=== PATIENT | female | born 1950 ===

== ENCOUNTER 2020-01-10 10:29 | Inpatient (IN) | payer MEDICARE, OTHER ==
[2020-01-10] MEDS ORDERED: cefTRIAXone(*) 1 GM in NS 0.9% 50 ML* 50 ML IVPB ONE (10:48)
[2020-01-10] MEDS ORDERED: Levofloxacin 750 MG IVPREMIX(* 750 MG/150 ML BAG IVPB ONE (10:48)
--- NOTE | 2020-01-10 10:54 | ED ---
Respiratory - HPI Summary HPI Summary: 70 year old F presenting to [facility] with a chief complaint of shortness of breath , coughing, and a subjective fever since 5 days ago. Patient reports one episode of vomiting this morning. She was seen at [facility] two hours ago and a chest x-ray showed pneumonia. When the patient arrived back home she had worsening shortness of breath and called EMS. Per EMS her oxygen saturation was 88% and she was tachycardic on their arrival. She improved with 3 L nasal cannula. Patient denies any sore throat, diarrhea, abdominal pain, travel outside of [place] in the last 2 months, or any known sick contacts. The patient has a history of breast cancer and is in remission. Medication list reviewed. Allergy list reviewed. Home Medications Medication Instructions Recorded Confirmed Type Bifidobacterium Infantis [Align] 4 mg PO DAILY 01/10/20 01/10/20 History Calcium Carbonate/Vitamin D3 1 each PO BID 01/10/20 01/10/20 History [Calcium 500-Vit D3 400 Chew Tb] Cholecalciferol TAB* [Vitamin D 1,000 unit PO DAILY 01/10/20 01/10/20 History TAB*] Dicyclomine CAP* [Bentyl CAP*] 20 mg PO BID 01/10/20 01/10/20 History Docusate CAP* [Colace Cap*] 100 mg PO DAILY 01/10/20 01/10/20 History Fluticasone NASAL SPRAY 50MCG* 2 spray BOTH NARES DAILY 01/10/20 01/10/20 History [Flonase NASAL SPRAY 50MCG*] Ibandronate TAB(NF) [Boniva(NF)] 150 mg PO QAM 01/10/20 01/10/20 History Multivitamins/Minerals TAB* 1 tab PO DAILY 01/10/20 01/10/20 History [Theragran/minerals TAB*] - History of Current Complaint Stated Complaint: SHORT OF BREATH Time Seen by Provider: 01/10/20 10:37 Hx Obtained From: Patient Onset/Duration: Lasting Days, Still Present Timing: Constant Associated Signs and Symptoms: Negative - Sore throat, diarrhea, abdominal pain , Fever - Allergy/Home Medications Allergies/Adverse Reactions: Allergies Allergy/AdvReac Type Severity Reaction Status Date / Time No Known Allergies Allergy Verified 01/10/20 11:20 Home Medications: Home Medications Bifidobacterium Infantis [Align] 4 mg PO DAILY 01/10/20 [History Confirmed 01/09] Calcium Carbonate/Vitamin D3 [Calcium 500-Vit D3 400 Chew Tb] 1 each PO BID [History Confirmed 01/10/20] Cholecalciferol TAB* [Vitamin D TAB*] 1,000 unit PO DAILY 01/10/20 [History Confirmed 01/10/20] Dicyclomine CAP* [Bentyl CAP*] 20 mg PO BID 01/10/20 [History Confirmed 01/10/20 ] Docusate CAP* [Colace Cap*] 100 mg PO DAILY 01/10/20 [History Confirmed 01/10/20 ] Fluticasone NASAL SPRAY 50MCG* [Flonase NASAL SPRAY 50MCG*] 2 spray BOTH NARES DAILY 01/10/20 [History Confirmed 01/10/20] Ibandronate TAB(NF) [Boniva(NF)] 150 mg PO QAM 01/10/20 [History Confirmed 01/09] Multivitamins/Minerals TAB* [Theragran/minerals TAB*] 1 tab PO DAILY 01/10/20 [ History Confirmed 01/10/20] PMH/Surg Hx/FS Hx/Imm Hx Endocrine/Hematology History: Denies: Hx Diabetes Cardiovascular History: Denies: Hx Hypertension - Cancer History Cancer Type, Location and Year: Breast cancer Hx Chemotherapy: No Hx Radiation Therapy: Yes - Surgical History Surgical History: Yes Surgery Procedure, Year, and Place: Lumpectomy - Family History Known Family History: Positive: Other - Cancer - Social History Alcohol Use: Daily Hx Substance Use: Yes Substance Use Type: Reports: Marijuana Hx Tobacco Use: No Smoking Status (MU): Never Smoked Tobacco Review of Systems Positive: Fever Negative: Sore Throat Positive: Shortness Of Breath, Cough Positive: Vomiting. Negative: Abdominal Pain, Diarrhea All Other Systems Reviewed And Are Negative: Yes Physical Exam - Summary Physical Exam Summary: Constitutional: Well-developed, Well-nourished, Alert. (-) Distressed Skin: Warm, Dry HENT: Normocephalic; Atraumatic Eyes: Conjunctiva normal Neck: Musculoskeletal ROM normal neck. (-) JVD, (-) Stridor, (-) Tracheal deviation Cardio: Rhythm regular, tachycardic in the 120s, Heart sounds normal; Intact distal pulses; Radial pulses are 2+ and symmetric. (-) Murmur Pulmonary/Chest wall: Slightly tachypneic, speaking in short sentences, no accessory muscles used, (-) Wheezes, (-) Rales, oxygen saturation is 88% on room air. Abd: Soft, (-) tenderness, (-) Distension, (-) Guarding, (-) Rebound Musculoskeletal: (-) Edema Lymph: (-) Cervical adenopathy Neuro: Alert, Oriented x3 Psych: Mood and affect Normal Triage Information Reviewed: Yes Vital Signs Reviewed: Yes Procedures - Sedation Patient Received Moderate/Deep Sedation with Procedure: No - Intubation Time of Intubation: 13:34 - Used a Glidoscope, sedated with Etomidate and Rocuronium. Patient desaturated to 77% during the procedure. Intubation Method: orotracheal Tube Size (cm): 7.5 - Glidoscope Breath Sounds after Intubation: equal Intubation Complications: O2 saturation decreased Post Intubation Xray: Yes Diagnostics - Laboratory Result Diagrams: 01/10/20 11:37 01/10/20 11:37 Lab Statement: Any lab studies that have been ordered have been reviewed, and results considered in the medical decision making process. - Radiology Chest x-ray Radiology Interpretation Completed By: Radiologist Summary of Radiographic Findings: CARDIOMEGALY WITH BIBASILAR INFILTRATES AND PATCHY INFILTRATES IN THE RIGHT UPPER LOBE WELL. ET TUBE AND NASOGASTRIC TUBE ARE IN PLACE. ED physician has reviewed this report. - EKG 11:12 Cardiac Rate: Other Rate - 129 BPM EKG Rhythm: Atrial Flutter Summary of EKG Findings: Left bundle branch block, no prior to compare to. ED physician has reviewed and interpreted this EKG. Re-Evaluation - Re-Evaluation First Eval Re-Evaluation Time: 11:59 Change: Worse Comment: Patient started to decompensate, she is very wheezy, using accessory muscles, speaking in one word sentences. Started a nebulizer treatment, she is feeling better but is still in respiratory distress. Second Eval Re-Evaluation Time: 13:14 Comment: The decision has been made to intubate the patient. Disposition - Course Course Of Treatment: Patient is here after being diagnosed with pneumonia this morning. Patient initially was only in mild distress. Shortly after arriving here, patient became markedly tachypneic and was wheezing. Patient was given a nebulizer treatment with mild improvement in her symptoms. Patient then continued to decline and eventually required 15 L of oxygen via an oxymask. Patient was intubated at that time. Patient's postintubation chest x-ray shows bilateral patchy infiltrates. Patient had cultures sent, Covid 19 swabs sent. Patient received Rocephin and levofloxacin after arriving in the emergency department when she was not in any respiratory distress. Patient received 2 L of IV fluids. Patient was found to be in atrial flutter as well and was started on amiodarone. Patient was admitted to the ICU - Diagnoses Provider Diagnoses: Respiratory failure, Atrial flutter, Pneumonia, Elevated troponin - Physician Notifications Discussed Care Of Patient With: Kevin Navas Time Discussed With Above Provider: 12:42 Instructed by Provider To: Other - Discussed with Dr. Navas who accepts the patient for admission. - Critical Care Time Critical Care Time: 75-104 min - 90 minutes Discharge ED - Sign-Out/Discharge Documenting (check all that apply): Patient Departure - Discharge Plan Condition: Stable Disposition: ADMITTED TO [facility] - Billing Disposition and Condition Condition: STABLE Disposition: Admitted to [facility] - Attestation Statements Document Initiated by Kentonibe: Yes Documenting Scribe: Ruth Starr Provider For Whom Kentonibe is Documenting (Include Credential): Abbe Aguillon MD Scribe Attestation: Ruth Jorgensen, scribed for Abbe Aguillon MD on 01/10/20 at 1557. Scribe Documentation Reviewed: Yes Provider Attestation: The documentation as recorded by the Ruth rodriguez accurately reflects the service I personally performed and the decisions made by , Abbe Aguillon MD Status of Scribe Document: Viewed
[2020-01-10] MEDS: NS 0.9% 1000 ML** 2,000 ML IV ONE ×2 (11:34→12:08)
[2020-01-10] MEDS ORDERED: Albuterol/Ipratropium NEB.SOL* Albuterol 2.5 MG/Ipratropium 0.5 MG 3 ML ONE (11:51)
[2020-01-10 12:01] LABS: ABS Lymphocytes 1.2 10^3/ul (1.0-4.8); ABS Monocytes 0.7 10^3/ul (0-0.8); ABS Neutrophils 9.2 10^3/ul (1.5-7.7); Hematocrit 47 % (35-47); Hemoglobin 15.8 g/dL (12.0-16.0); Mean Corpuscular HGB Conc 34 g/dL (31-36); Mean Corpuscular Hemoglobin 31 pg (27-31); Mean Corpuscular Volume 91 fL (80-97); Mean Platelet Volume 8.8 fL (7.4-10.4); Platelet Count 289 10^3/uL (150-450); Red Blood Count 5.09 10^6 /uL (3.70-4.87); Red Cell Distribution Width 14 % (10-15); White Blood Count 11.2 10^3/uL (3.5-10.8)
[2020-01-10 12:10] LABS: INR 1.24 (0.82-1.09)
[2020-01-10 12:19] LABS: ALT 131 U/L (7-52); AST 73 U/L (13-39); Albumin 4.3 g/dL (3.2-5.2); Albumin/Globulin Ratio 1.2 (1-3); Alkaline Phosphatase 140 U/L (34-104); Anion Gap 12 mmol/L (2-11); BUN/Creatinine Ratio 16.9 (8-20); Blood Urea Nitrogen 13 mg/dL (6-24); CO2 Carbon Dioxide 22 mmol/L (22-32); Calcium 9.7 mg/dL (8.6-10.3); Chloride 99 mmol/L (101-111); EGFR African American 89.4 (>60); EGFR Non-African American 73.9 (>60); Globulin 3.7 g/dL (2-4); Glucose 181 mg/dL (70-100); Potassium 4.6 mmol/L (3.5-5.0); Sodium 133 mmol/L (135-145)
[2020-01-10 12:22] LABS: Influenza A Molecular Negative (Negative); Influenza B Molecular Negative (Negative)
[2020-01-10 12:25] LABS: Troponin I 0.09 ng/mL (<0.03)
[2020-01-10] MEDS ORDERED: NS 0.9% 1000 ML** 1,000 ML IV ONE (12:35)
[2020-01-10] MEDS ORDERED: Amiodarone 360 MG IVPREMIX* 360 MG/200 ML BAG IV ONE (12:36)
[2020-01-10] MEDS ORDERED: Amiodarone 150 MG IVPREMIX* 150 MG/100 ML BAG IV ONE (12:36)
[2020-01-10] MEDS ORDERED: Etomidate* 2 MG/ML 10 ML VIAL IV ONE (13:14)
[2020-01-10] MEDS ORDERED: Rocuronium* 10 MG/ML VIAL IV ONE (13:14)
[2020-01-10] MEDS: Propofol* 100 ML IV ONE ×2 (13:41→21:40)
[2020-01-10 14:42] LABS: Urine Appearance Cloudy; Urine Bilirubin Negative (Negative); Urine Blood 2+ (Negative); Urine Color Amber; Urine Glucose 3+(>=500 mg/dL) (Negative); Urine Ketones 1+ (Negative); Urine Nitrite Negative (Negative); Urine Protein 2+(100 mg/dL) (Negative); Urine Specific Gravity 1.025 (1.010-1.030); Urine Urobilinogen Negative (Negative)
[2020-01-10 15:01] LABS: Urine Bacteria Absent (Absent); Urine Red Blood Cell 3+(>10/hpf) (Absent); Urine White Blood Cell Trace(0-5/hpf) (Absent)
[2020-01-10] MEDS ORDERED: Azithromycin 500 mg/250 ml NS 500 MG/250 ML BAG IVPB SCH (17:00)
--- NOTE | 2020-01-10 17:29 | HP ---
ADMISSION HISTORY AND PHYSICAL: DATE OF ADMISSION: 01/10/20 REASON FOR ADMISSION: Community-acquired pneumonia with acute hypoxemic respiratory failure. HISTORY OF PRESENT ILLNESS: Note, the following history is taken from the emergency room physician's record as the patient is intubated, paralyzed, and unable to give a history. This patient is a 70-year-old female with an unknown medical history who has a 5 - day history of shortness of breath, coughing and subjective fever. She was seen at an outpatient wellness center earlier today and a chest x-ray showed a pneumonia. The patient was subsequently sent to the emergency room where O2 sats were 88% on room air. Chest x-ray in the emergency room showed a left lower lobe infiltrate and there was difficulty oxygenating the patient on high flow humidified nasal O2, so the decision was made to intubate the patient which was done in the emergency room. There were no apparent complications and the patient was subsequently admitted to the intensive care unit. There is no other history available at this time. OUTPATIENT MEDICATIONS: 1. Cholecalciferol 1000 units daily. 2. Bentyl 20 mg twice daily. 3. Fluticasone nasal spray. 4. Boniva 150 mg q.a.m. ALLERGIES: No known drug allergies. FAMILY AND SOCIAL HISTORY: Only available history is the patient admits to daily alcohol use, but does not smoke or use illicit drugs.. REVIEW OF SYSTEMS: Unobtainable. PHYSICAL EXAMINATION GENERAL: The patient was paralyzed and unresponsive. VITAL SIGNS: Temp 98.8 by Kelly; heart rate 95, irregular; respiratory rate 16 ; O2 saturation 97%; blood pressure 120/80; end tidal CO2 of 48. HEENT: Pupils were mid positioned and sluggishly reactive. Oral tracheal tube was in placed. NECK: Supple. There was no jugular venous distention. LUNGS: Thorax with crackles at the left base posteriorly but no wheezes. CARDIAC: Exam revealed no murmurs or rubs. ABDOMEN: Soft and not distended. EXTREMITIES: Not edematous and not cyanotic. NEUROLOGIC: Exam could not be evaluated because the patient was paralyzed. DIAGNOSTIC STUDIES/LAB DATA: Admission laboratory data was significant for a white count of 11,000, hemoglobin of 15.8. Normal BUN and creatinine. Glucose of 181, lactate of 2.4. Liver enzymes mildly elevated. ALT 131, alk phos 140, AST 73. Chest x-ray as reported. EKG showed a left bundle branch block. IMPRESSION: Major problems on admission are: 1. Community-acquired pneumonia involving the left lung (lower lobe), probably viral or atypical. 2. Acute hypoxemic respiratory failure requiring intubation and mechanical ventilation. 3. History of alcohol abuse, at risk for withdrawal syndrome. MANAGEMENT PLAN: 1. Empiric treatment of the community-acquired pneumonia with ceftriaxone and azithromycin pending culture results. 2. The patient to be evaluated for coronavirus infection. 3. We will sedate with benzodiazepines in anticipation of possible alcohol withdrawal. CRITICAL CARE TIME: 60 minutes. [id number] #: [id number] MTDD
[2020-01-10] MEDS ORDERED: Lactated Ringers 1000 ML Bag* 1,000 ML IV SCH (18:00)
[2020-01-10] MEDS: Enoxaparin(*) 40 MG/0.4 ML SYR SUBCUT SCH (18:54)
[2020-01-10] MEDS ORDERED: Amiodarone 150 MG IVPREMIX* 0 MG/0 ML BAG IV ONE (19:09)
[2020-01-10] MEDS: Chlorhexidine MOUTHWASH 0.12%* 15 ML UDC TOPICAL SCH ×2 (19:31→23:35)
[2020-01-10] MEDS ORDERED: Propofol* 100 ML ONE (19:54)
[2020-01-10 20:03] LABS: Troponin I 0.11 ng/mL (<0.03)
[2020-01-10] MEDS ORDERED: NS 0.9% 500 ML* 500 ML IV ONE (20:10)
[2020-01-11 00:12] LABS: Troponin I 0.11 ng/mL (<0.03)
[2020-01-11] MEDS ORDERED: NS 0.9% 500 ML* 500 ML IV ONE (00:30)
[2020-01-11] MEDS ORDERED: Propofol* 100 ML ONE ×4 (01:39→18:52)
[2020-01-11] MEDS: Propofol* 100 ML IV ONE ×3 (04:18→15:38)
[2020-01-11 06:09] LABS: Hematocrit 39 % (35-47); Hemoglobin 12.8 g/dL (12.0-16.0); Mean Corpuscular HGB Conc 33 g/dL (31-36); Mean Corpuscular Hemoglobin 31 pg (27-31); Mean Corpuscular Volume 94 fL (80-97); Mean Platelet Volume 8.5 fL (7.4-10.4); Platelet Count 189 10^3/uL (150-450); Red Blood Count 4.14 10^6 /uL (3.70-4.87); Red Cell Distribution Width 14 % (10-15); White Blood Count 9.3 10^3/uL (3.5-10.8)
[2020-01-11 06:28] LABS: ALT 317 U/L (7-52); AST 298 U/L (13-39); Albumin 2.9 g/dL (3.2-5.2); Albumin/Globulin Ratio 1.2 (1-3); Alkaline Phosphatase 92 U/L (34-104); Anion Gap 8 mmol/L (2-11); BUN/Creatinine Ratio 16.9 (8-20); Blood Urea Nitrogen 15 mg/dL (6-24); CO2 Carbon Dioxide 23 mmol/L (22-32); Calcium 7.2 mg/dL (8.6-10.3); Chloride 104 mmol/L (101-111); EGFR African American 75.7 (>60); EGFR Non-African American 62.5 (>60); Globulin 2.5 g/dL (2-4); Glucose 99 mg/dL (70-100); Potassium 4.4 mmol/L (3.5-5.0); Sodium 135 mmol/L (135-145); Total Protein 5.4 g/dL (6.4-8.9)
[2020-01-11] MEDS: Chlorhexidine MOUTHWASH 0.12%* 15 ML UDC TOPICAL SCH ×5 (07:49→20:14)
[2020-01-11] MEDS: Famotidine SUSP ORALSYR 8 MG/ML G TUBE SCH (08:10)
[2020-01-11] MEDS ORDERED: fentaNYL* 50 MCG/ML 2 ML VIAL (100 MCG VIAL) IV SLOW PU PRN (10:27)
[2020-01-11] MEDS: cefTRIAXone(*) 1 GM in NS 0.9% 50 ML* 50 ML IVPB SCH (11:09)
[2020-01-11] MEDS ORDERED: Lactated Ringers 1000 ML Bag* 1,000 ML IV SCH (18:04)
--- NOTE | 2020-01-11 18:10 | PN ---
Date of Service: 01/11/20 Critical Care Services: Patient had an uneventful day. Remains on the ventilator and sedated with propofol. Vital Signs: Temp Pulse Resp BP SpO2 FiO2 100.2 F 96 19 117/68 99 40 Physical Exam: Gen: Sedated HEENT: Oropharyngeal tube in place. Lungs: Crackles left base Cardiac: No murmurs Abdomen:Not distended Extremities:no cyanosis or edema Fluid Balance (Past 24 Hours): 01/11/20 01/12/20 06:59 06:59 Intake Total 4598 1024 Output Total 553 1235 Balance 4045 -211 Weight 151 lb 3.794 oz Intake: IV Fluids 4408 746 ABX - CEFTRIAXONE 58 LR 1008 688 NS (0.9%) 1000 IVPB 53 ABX - CEFTRIAXONE 53 Medicated IV 190 125 CC - Propofol/Diprivan 190 125 Oral 0 Tube Feeding Flush Amount 100 Output: Kelly 338 1235 Straight Cath 15 Residual 200 Kelly 16 Fr Temperature 200 Probe Labs: 01/10/20 01/11/20 01/11/20 23:30 05:50 05:50 WBC 9.3 RBC 4.14 Hgb 12.8 Hct 39 MCV 94 MCH 31 MCHC 33 RDW 14 Plt Count 189 MPV 8.5 Sodium 135 Potassium 4.4 Chloride 104 Carbon Dioxide 23 Anion Gap 8 BUN 15 Creatinine 0.89 Est GFR ( Amer) 75.7 Est GFR (Non-Af Amer) 62.5 BUN/Creatinine Ratio 16.9 Glucose 99 Lactic Acid 2.4 Calcium 7.2 L Total Bilirubin 0.50 AST 298 H ALT 317 H Alkaline Phosphatase 92 Troponin I 0.11 H* 0.10 H* Total Protein 5.4 L Albumin 2.9 L Globulin 2.5 Albumin/Globulin Ratio 1.2 Studies: All cultures negative (blood urine, sputum) so far. Nutrition: Tube feedings with Jevity 1.2 Impression: 1. Left lower lobe pneumonia - no pathogen identified to date. 2. Persistent hyperlactatemia (low-level) - not an encouraging sign. Plan: 1. Attempt wean as soon as feasible 2. Await results of COVID assay. 3. Will d/c antibiotics if cultures remain negative. Critical Care Time: 45 minutes
[2020-01-11] MEDS: Enoxaparin(*) 40 MG/0.4 ML SYR SUBCUT SCH (18:15)
[2020-01-11] MEDS: Propofol* 100 ML IV SCH (20:14)
[2020-01-12] MEDS: Propofol* 100 ML IV SCH ×2 (00:05→05:13)
[2020-01-12] MEDS: Chlorhexidine MOUTHWASH 0.12%* 15 ML UDC TOPICAL SCH ×3 (00:05→09:45)
[2020-01-12 05:48] LABS: Hematocrit 37 % (35-47); Hemoglobin 12.4 g/dL (12.0-16.0); Mean Corpuscular HGB Conc 34 g/dL (31-36); Mean Corpuscular Hemoglobin 31 pg (27-31); Mean Corpuscular Volume 92 fL (80-97); Mean Platelet Volume 8.5 fL (7.4-10.4); Platelet Count 174 10^3/uL (150-450); Red Blood Count 3.99 10^6 /uL (3.70-4.87); Red Cell Distribution Width 14 % (10-15); White Blood Count 6.8 10^3/uL (3.5-10.8)
[2020-01-12 06:03] LABS: Albumin 2.8 g/dL (3.2-5.2); Albumin/Globulin Ratio 1.1 (1-3); BUN/Creatinine Ratio 18.1 (8-20); Calcium 8.1 mg/dL (8.6-10.3); EGFR African American 96.6 (>60); EGFR Non-African American 79.9 (>60); Globulin 2.5 g/dL (2-4); Potassium 3.5 mmol/L (3.5-5.0); Total Bilirubin 0.5 mg/dL (0.2-1.0); Total Protein 5.3 g/dL (6.4-8.9)
[2020-01-12] MEDS: Famotidine SUSP ORALSYR 8 MG/ML G TUBE SCH (10:58)
[2020-01-12] MEDS: cefTRIAXone(*) 1 GM in NS 0.9% 50 ML* 50 ML IVPB SCH (11:17)
[2020-01-12] MEDS: Famotidine IV* 10 MG/ML 2 ML (20 mg) IV SLOW PU SCH (11:17)
--- NOTE | 2020-01-12 16:31 | PN ---
Date of Service: 01/12/20 Critical Care Services: Weaned and extubated this AM and now on HFNC. Is alert and oriented - being treated empirically for a community acquired pneumonia - COVID-19 assay negative. Vital Signs: Temp Pulse Resp BP SpO2 FiO2 100.8 F 121 20 119/79 97 100 Physical Exam: Gen: Somnolent but arousable HEENT: no facial asymmetry Lungs: Decreased BS Right base Cardiac: Reg rhythm Abdomen: Not distended Extremities: No cyanosis or edema. Fluid Balance (Past 24 Hours): 01/11/20 01/12/20 06:59 06:59 Intake Total 4598 1911 Output Total 553 2265 Balance 4045 -354 Weight 151 lb 3.794 oz 150 lb 5.684 oz Intake: IV Fluids 4408 1220 ABX - CEFTRIAXONE 58 LR 1008 1162 NS (0.9%) 1000 IVPB 53 ABX - CEFTRIAXONE 53 Medicated IV 190 401 CC - Propofol/Diprivan 190 401 Oral 0 0 Tube Feeding 137 Tube Feeding Flush Amount 100 Output: Kelly 338 2265 Straight Cath 15 Residual 200 Kelly 16 Fr Temperature 200 Probe Labs: Laboratory Results - last 24 hr 01/10/20 01/12/20 01/12/20 11:37 05:30 05:30 WBC 6.8 RBC 3.99 Hgb 12.4 Hct 37 MCV 92 MCH 31 MCHC 34 RDW 14 Plt Count 174 MPV 8.5 Sodium 140 Potassium 3.5 Chloride 110 Carbon Dioxide 25 Anion Gap 5 BUN 13 Creatinine 0.72 Est GFR ( Amer) 96.6 Est GFR (Non-Af Amer) 79.9 BUN/Creatinine Ratio 18.1 Glucose 107 H Lactic Acid Calcium 8.1 L Total Bilirubin 0.50 AST 109 H ALT 229 H Alkaline Phosphatase 90 Total Protein 5.3 L Albumin 2.8 L Globulin 2.5 Albumin/Globulin Ratio 1.1 COVID-19 PCR Undetected 01/12/20 05:30 WBC RBC Hgb Hct MCV MCH MCHC RDW Plt Count MPV Sodium Potassium Chloride Carbon Dioxide Anion Gap BUN Creatinine Est GFR ( Amer) Est GFR (Non-Af Amer) BUN/Creatinine Ratio Glucose Lactic Acid 0.7 Calcium Total Bilirubin AST ALT Alkaline Phosphatase Total Protein Albumin Globulin Albumin/Globulin Ratio COVID-19 PCR Studies: CXR - ? infiltrate at right base. Blood and urine cultures negative. Nutrition: Will start oral diet Impression: Improved clinically, but no pathogen isolated. Sputum culture pending. Plan: Continue antibiotics for now - pending results of sputum culture. Critical Care Time: 40 minutes (including time involved in extubation)
[2020-01-12] MEDS ORDERED: diPHENhydraMINE PO* 25 MG PO PRN (17:57)
[2020-01-12] MEDS: Enoxaparin(*) 40 MG/0.4 ML SYR SUBCUT SCH (17:58)
[2020-01-13] MEDS: cefTRIAXone(*) 1 GM in NS 0.9% 50 ML* 50 ML IVPB SCH (10:14)
[2020-01-13] MEDS: Famotidine IV* 10 MG/ML 2 ML (20 mg) IV SLOW PU SCH (10:14)
--- NOTE | 2020-01-13 13:06 | ECHO ---
*[facility]* [place] [address] Fax #: [phone] Transthoracic Echocardiogram Patient: Apryl Escalante : 1950 Study Date: 01/13/2020 Age: 70 Gender: F HR: 118 bpm Height: 65 in /165.1 cm BSA: 1.75 m^2 Weight: 149.7 lb /68 kg BMI: 25 kg/m^2 *Devops Architect: Rachel Soto *Referring Physician: * Kevin NavasReading Physician: * Rosales Starr MD Indications: Cardiomyopathy. History: Dyspnea. Atrial fibrillation. Risk factors: ETOH. Current tobacco use. Conclusions Summary: - Left ventricle: The cavity size is severely dilated. Wall thickness is normal. Systolic function is severely reduced. The estimated ejection fraction is 10-15%. - Regional wall motion abnormality: Dyskinesis of the mid anterior and basal-mid inferoseptal myocardium; akinesis of the basal and apical anterior, basal-mid anteroseptal, basal-mid inferior, and apical septal myocardium; hypokinesis of the apical inferior, mid inferolateral, mid anterolateral, apical lateral, and apical myocardium. - Right ventricle: Systolic function is mildly reduced. - Mitral valve: There is moderate regurgitation. - Pericardium, extracardiac: There is a right pleural effusion and a left pleural effusion. - Pulmonary arteries: Systolic pressure is severely increased, estimated to be 62 mm Hg. Study data: Transthoracic echocardiogram. Procedure: Transthoracic echocardiography was performed. Image quality was good. Complete 2D, spectral Doppler, and color flow Doppler. Location: ICU Patient status: Inpatient. Patient room number: 8. No prior study is available for comparison. Rhythm: Atrial fibrillation. Findings Left ventricle: The cavity size is severely dilated. Wall thickness is normal. Systolic function is severely reduced. The estimated ejection fraction is 10-15%. Regional wall motion abnormalities: Akinesis of the inferolateral myocardium. Hypokinesis of the inferoseptal myocardium. Dyskinesis of the mid anterior and basal-mid inferoseptal myocardium; akinesis of the basal and apical anterior, basal-mid anteroseptal, basal-mid inferior, and apical septal myocardium; hypokinesis of the apical inferior, mid inferolateral, mid anterolateral, apical lateral, and apical myocardium. Left ventricular diastolic function parameters are indeterminate. Right ventricle: The cavity size is normal. Systolic function is mildly reduced. Ventricular septum: The ventricular septum is normal. Left atrium: The atrium is normal in size. Atrial septum: No defect or patent foramen ovale is identified. Mitral valve: The leaflets are mildly thickened. No echocardiographic evidence for prolapse. There is no evidence of stenosis. There is moderate regurgitation. Aortic valve: The valve is structurally normal. The valve is trileaflet. Cusp separation is normal. Transvalvular velocity is within the normal range. There is no evidence of stenosis. There is trace regurgitation. Tricuspid valve: The valve is structurally normal. There is no evidence of stenosis. There is trace regurgitation. Pulmonic valve: The valve is structurally normal. There is no evidence of stenosis. There is trace regurgitation. Aorta: The aortic root appears normal. The aortic arch appears normal. Pericardium: There is no significant pericardial effusion. There is a right pleural effusion and a left pleural effusion. Pulmonary arteries: Systolic pressure is severely increased, estimated to be 62 mm Hg. Systemic veins: Inferior vena cava: Not well visualized. Pulmonary veins: The Pulmonary veins appear normal. Measurements Left ventricle Value Ref Aortic valve continued Value Ref NOEHLIA, LAX (H) 6.9 cm 3.8 - 5.2 GINETTE, VTI 1.69 cm^2 ----- ESD, LAX (H) 6.3 cm 2.2 - 3.5 GINETTE, Vmax 1.52 cm^2 ----- FS, LAX (L) 9 % 27 - 45 PW, ED, LAX (H) 1.3 cm 0.6 - 0.9 Mitral valve Value Ref E', lat kiana, TDI 12.3 cm/sec >=10.0 Peak E 1.33 m/se c ----- E/e', lat kiana, 11 Peak A 0.01 m/sec - ---- TDI Decel time 153 ms ----- Peak grad, D 7.1 mm Hg ----- LVOT Value Ref Peak E/A ratio 190 ----- Diam, S 2.00 cm ERO, PISA 0.12 cm^2 ----- Area 3.1 cm^2 MR vol, PISA 18 ml ----- Peak leonel, S 0.7 m/sec MR fraction, PISA 33 % ----- Mean grad, S 1 mm Hg SV 37 ml Pulmonic valve Value Ref Peak v, S 0.84 m/sec ----- Ventricular septum Value Ref Peak grad, S 3.0 mm Hg ----- IVS, ED 0.8 cm 0.6 - 0.9 Tricuspid valve Value Ref Right ventricle Value Ref TR peak v 2.36 m/sec <=2 .8 NOHELIA, LAX 1.8 cm Peak RV-RA grad, S 57 mm Hg ----- NOHELIA minor ax, 3.2 cm 1.9 - 3.5 Max TR leonel 2.36 m/sec ----- A4C mid Aortic root Value Ref Left atrium Value Ref Root diam 2.8 cm <4. 0 AP dim, ES (H) 4.20 cm 2.70 - 3.80 Ascending aorta Value Ref ML dim, A4C 3.7 cm AAo AP diam, S 3.3 cm ----- SI dim, A4C 6.9 cm Vol/bsa, ES, 1-p 32 ml/m^2 11 - 40 Aortic arch Value Ref A4C Arch diam 2.4 cm ----- Right atrium Value Ref Decending aorta Value Ref SI dim, ES 5.2 cm 3.4 - 5.3 Calin peak leonel 0.61 m/sec ----- ML dim, ES, A4C 3.8 cm 2.6 - 4.4 SI dim, ES, A4C 5.2 cm 3.4 - 5.3 Inferior vena cava Value Ref Diam 2.1 cm ----- Aortic valve Value Ref Peak v, S 1.44 m/sec VTI, S 22.5 cm Mean grad, S 5.0 mm Hg Peak grad, S 8.0 mm Hg Legend: (L) and (H) bronwyn values outside specified reference range. Prepared and electronically signed by Rosales Starr MD 01/13/2020 13:05
[2020-01-13] MEDS ORDERED: Furosemide IV* 10 MG/ML VIAL (40 MG) IV SLOW PU ONE (16:15)
--- NOTE | 2020-01-13 16:16 | PN ---
Date of Service: 01/13/20 Critical Care Services: Up in chair and appears comfortable. Has no new complaints. All cultures negative. Vital Signs: Temp Pulse Resp BP SpO2 FiO2 100.5 F 109 27 138/82 95 50 Physical Exam: Gen:Alert, oriented, comfortable HEENT: No JVD Lungs: BS distant Cardiac: Reg rhythm. I/ systolic murmur Abdomen: Not distended Extremities: No cyanosis or edema Fluid Balance (Past 24 Hours): 01/11/20 01/12/20 01/13/20 06:59 06:59 06:59 Intake Total 4598 1911 957 Output Total 553 2265 1686 Balance 4045 354 729 Weight 151 lb 3.794 oz 150 lb 5.684 oz 153 lb 7.068 oz Intake: IV Fluids 4408 1220 638 ABX - CEFTRIAXONE 58 LR 1008 1162 254 NS (0.9%) 1000 384 IVPB 53 55 ABX - CEFTRIAXONE 53 55 Medicated IV 190 401 77 CC - Propofol/Diprivan 190 401 77 Oral 0 0 Tube Feeding 137 137 Tube Feeding Flush Amount 100 Kelly Irrigate Amount 50 Output: Urine Kelly 338 2265 1686 Straight Cath 15 Residual 200 Kelly 16 Fr Temperature 200 Probe Other: Estimated Void Estimated Stool Amount Labs: None Studies: Cardiac ECHO shows severe LV systolic dysfunction with mitral insufficiency and PA systolic pressure of 65 mm Hg. Nutrition: Oral diet Impression: 1. No pathogen identified for presumed pneumonia 2. [place] finding of severe LV dysfunction on cardiac ECHO Plan: 1. Start cardiac Rx with ARB (losartan) 2. If #1 tolerated, then add a diuretic 3. Consult cardiology for long-term management. Critical Care Time: 30 minutes
[2020-01-13] MEDS: Losartan TAB* 25 MG PO SCH (18:17)
[2020-01-13] MEDS: Enoxaparin(*) 40 MG/0.4 ML SYR SUBCUT SCH (18:17)
[2020-01-13] MEDS ORDERED: Furosemide IV* 10 MG/ML VIAL (40 MG) IV ONE (20:07)
[2020-01-14] MEDS: Famotidine IV* 10 MG/ML 2 ML (20 mg) IV SLOW PU SCH (08:23)
[2020-01-14] MEDS: Losartan TAB* 25 MG PO SCH (08:23)
[2020-01-14] MEDS ORDERED: Furosemide IV* 10 MG/ML VIAL (40 MG) IV ONE (10:35)
--- NOTE | 2020-01-14 10:49 | PN ---
Subjective Date of Service: 01/14/20 Interval History: Pt feels "better" today, still on 02 at 4L, denies CP Objective Active Medications: Amoxicillin/Clavulanate Potassium (Augmentin Tab*) 500 mg PO BID [facility] Stop: 01/19/20 23:59 Enoxaparin Sodium (Lovenox(*)) 40 mg SUBCUT Q24H [facility] Last Admin: 01/13/20 18:17 Dose: 40 mg Losartan Potassium (Cozaar Tab*) 25 mg PO DAILY [facility] Last Admin: 01/14/20 08:23 Dose: 25 mg Melatonin (Melatonin) 3 mg PO BEDTIME PRN PRN Reason: insomnia Metoprolol Tartrate (Lopressor Tab*) 25 mg PO BID [facility] Vital Signs - 8 hr 01/14/20 01/14/20 01/14/20 03:19 07:42 09:58 Temperature 98.2 F 97.7 F Pulse Rate 102 102 Respiratory 16 20 18 Rate Blood Pressure 148/93 139/82 (mmHg) O2 Sat by Pulse 98 97 Oximetry Oxygen Devices in Use Now: Nasal Cannula Appearance: 70 yo F in nAD, aAOx3 Eyes: No Scleral Icterus, PERRLA Ears/Nose/Mouth/Throat: NL Teeth, Lips, Gums, Mucous Membranes Moist Neck: NL Appearance and Movements; NL JVP, Trachea Midline Respiratory: Symmetrical Chest Expansion and Respiratory Effort, - - crackles at b/l bases Cardiovascular: - - irregular, tachy Abdominal: NL Sounds; No Tenderness; No Distention, No Hepatosplenomegaly Lymphatic: No Cervical Adenopathy Extremities: No Edema Skin: No Rash or Ulcers Neurological: Alert and Oriented x 3, NL Muscle Strength and Tone Result Diagrams: 01/12/20 05:30 01/12/20 05:30 Microbiology and Other Data: Microbiology 01/10/20 11:37 Aerobic Blood Culture - Preliminary Blood Venous No Growth Day 3 Anaerobic Blood Culture - Preliminary No Growth Day 3 01/10/20 11:37 Aerobic Blood Culture - Preliminary Blood Venous No Growth Day 3 Anaerobic Blood Culture - Preliminary No Growth Day 3 01/10/20 22:05 Gram Stain - Final Sputum Trach Sputum Culture - Final Normal Luanne 01/10/20 14:20 Urine Culture - Final Urine No Growth (<1,000 CFU/mL) 01/10/20 14:20 Legionella Urinary Antigen - Final Urine Negative Legionella Antigen Streptococcus pneumoniae Ag Screen - Final Negative S. pneumo Antigen Assess/Plan/Problems-Billing Assessment: 70 yo F with h/o osteoporosis and allergic rhinitis presented with respiratory failure, a. fib . EF 15%. Intubated , then extubated and transferred out of ICU on 01/13/20 - Patient Problems (1) Acute hypoxemic respiratory failure Comment: suspect it was mainly related to CHF, but PNA contributed. Plan to complete 5 days of antibiotic tx. (2) Pneumonia Comment: pt had RLL infiltrate, temp of 100.6, antibiotics stopped by the assembler production line will start Augmentin BID x 5 days total (3) CHF (congestive heart failure) Comment: due to cardiomypathy, new, EF 15% Pt has no known heart dz. she had CP in 07/2019 and ever since then it was occasionally difficult for her to walk uphill Past 2 weeks noted wheezing and SOB when lying flat and thought that she had sinusitis cordiology consulted. Telem d/c'd in ICU-will restart Also on exam pt is likely in A. fib-will get EKG to confirm The differential of cardiomyopathy in this pt is likely a. fib/tachy related on CAD, or both (4) Atrial fibrillation Comment: will get EKG for confirm Pt was in a. fib on 01/11 Likely need to start anticoagulation TSH pending Will start lopressor to control HR(now 102 BPM) (5) Elevated troponin Comment: suspect demand ischemia due to CHF (6) LFT elevation Comment: suspect CHF, low perfusion state, improving, will monitor (7) DVT prophylaxis Comment: Lovenox, but may need to be placed on DOAC if still in A. fib
[2020-01-14] MEDS: Amoxicillin/Clavulanate TAB* 500 MG PO SCH ×2 (11:11→20:33)
[2020-01-14] MEDS: Metoprolol Tartrate TAB* 25 MG PO SCH ×2 (11:11→20:33)
[2020-01-14 11:33] LABS: Albumin 3.2 g/dL (3.2-5.2); Calcium 8.9 mg/dL (8.6-10.3); EGFR Non-African American 96.7 (>60); Globulin 3.2 g/dL (2-4); Potassium 3.2 mmol/L (3.5-5.0); Total Bilirubin 0.7 mg/dL (0.2-1.0); Total Protein 6.4 g/dL (6.4-8.9)
[2020-01-14 11:56] LABS: TSH (Thyroid Stimulating Horm) 2.86 mcIU/mL (0.34-5.60)
[2020-01-14] MEDS ORDERED: Potassium Chlor TAB* 20 MEQ TAB.ER PO ONE (12:38)
[2020-01-14] MEDS: Enoxaparin(*) 40 MG/0.4 ML SYR SUBCUT SCH (17:36)
--- NOTE | 2020-01-14 18:15 | CONS ---
CARDIOLOGY CONSULTATION: DATE OF CONSULT: 01/14/20 INDICATION FOR CONSULTATION: Cardiomyopathy, shortness of breath. HISTORY OF PRESENT ILLNESS: The patient is a 70-year-old female with little past medical history, who was admitted to the hospital with community-acquired pneumonia. The patient states that she had been feeling unwell for 5 days prior to admission with fevers and cough. The patient was admitted to the emergency room and found to have a left lower lobe infiltrate. She was hypoxic at the time of evaluation. The patient was admitted to the intensive care unit. She was treated by the instructor kindergarten in the hospital with aggressive treatments for her pneumonia. While she was in the ICU, the patient had an echocardiogram, which showed severely reduced LV systolic function, ejection fraction 10% to 15% with global hypokinesis. There were no valvular abnormalities. The patient was noted to have a right pleural effusion on the echocardiogram. She had severely increased PA systolic pressures and an estimated PA systolic pressure of 65 to 70 mmHg. The patient continued to have treatment of her pneumonia and was ultimately transferred from the intensive care unit to the floor. In speaking with the patient today, the patient feels like she is turning the corner regarding her pneumonia. Her breathing is improved. She denies any palpitations. She denies any lightheadedness, dizziness, or syncope. The patient's EKG does show a left bundle branch block. The patient reports that she had a cardiac evaluation 4 years ago for a left bundle branch block. Reportedly, she underwent a stress test at that time, which was unremarkable. PAST MEDICAL HISTORY: Significant only for seasonal allergies and osteoporosis. OUTPATIENT MEDICATIONS: 1. Boniva 150 mg daily. 2. Calciferol 1000 units a day. 3. Flonase nasal spray. ALLERGIES: No known drug allergies. FAMILY HISTORY: No family history of early coronary artery disease. SOCIAL HISTORY: She lives with her daughter. She does report daily alcohol use. She denies tobacco use. She denies any illicit drug use. She is retired. REVIEW OF SYSTEMS: Positive for fevers. Positive for cough. Positive for weight loss. Other 12-point review is unremarkable. PHYSICAL EXAM: Height is 5 feet 5 inches, weight is 153 pounds, blood pressure 127/86, respiratory rate 20, oxygen saturation 96% on 4 L, heart rate is 106, temperature 98.5. Sclerae anicteric. Oropharynx is pink without erythema. Carotids are 2+ without bruits. JVD is normal. Thyroid is normal. Cardiac Exam: S1, S2 without any murmurs, rubs, or gallops. She is tachycardic. PMI is normal. Lungs have mildly decreased breath sounds. There are rhonchi on the right base. There is no dullness to percussion. Abdomen is soft, nontender, nondistended with normoactive bowel sounds. Extremities show no edema. She has 2+ pulses throughout. The patient is awake, alert, and oriented. She moves all 4 extremities equally. DIAGNOSTIC STUDIES/LAB DATA: CBC within normal limits. Chemistries within normal limits. BUN 11, creatinine 0.6. Initially, her troponin level was 0.09 , peak troponin at 0.11. AST and ALT are minimally elevated. TSH is normal at 2.86. Magnesium level is normal. EKG shows sinus tachycardia at 104 beats per minute with a left bundle branch block, although I cannot absolutely rule out that she does not have atrial flutter with 2:1 conduction given a notched T-wave in her EKG. Echocardiogram as described above. IMPRESSION AND PLAN: This is a 70-year-old female with little past medical history, who was admitted to the hospital with community-acquired pneumonia and respiratory failure. Her echocardiogram shows severely reduced LV systolic function without any significant valvular abnormalities, but does have pulmonary hypertension. The question is whether her LV dysfunction precedes her diagnosis of pneumonia or is secondary to sepsis and pneumonia. The patient does have history of a left bundle branch block, which was reportedly evaluated 4 years ago and at that time her cardiac evaluation was normal. For now, my recommendation is the patient continue on maximum medical therapy. The patient is on beta-blockers, ARB, and an aspirin a day. The patient does not seem to be fluid overloaded, thus diuretics are not necessary at this time. The question is whether her LV dysfunction is ischemic or nonischemic in origin. For now, my recommendation is the patient undergo chemical nuclear stress test to look at cardiac perfusion to determine whether the patient needs a cardiac catheterization. Otherwise, the patient will continue on maximum medical therapy. The patient will likely get a repeat echocardiogram in 4 to 6 weeks to reevaluate LV function. [id number]/[facility] #: [id number]
[2020-01-15 06:46] LABS: ABS Eosinophils 0.1 10^3/ul (0-0.6); ABS Lymphocytes 0.8 10^3/ul (1.0-4.8); ABS Monocytes 0.6 10^3/ul (0-0.8); ABS Neutrophils 5.3 10^3/ul (1.5-7.7); Hematocrit 39 % (35-47); Hemoglobin 13.3 g/dL (12.0-16.0); Mean Corpuscular HGB Conc 34 g/dL (31-36); Mean Corpuscular Hemoglobin 31 pg (27-31); Mean Corpuscular Volume 91 fL (80-97); Mean Platelet Volume 8.5 fL (7.4-10.4); Platelet Count 214 10^3/uL (150-450); Red Blood Count 4.25 10^6 /uL (3.70-4.87); Red Cell Distribution Width 14 % (10-15); White Blood Count 6.9 10^3/uL (3.5-10.8)
[2020-01-15 07:02] LABS: Albumin 2.8 g/dL (3.2-5.2); BUN/Creatinine Ratio 18.5 (8-20); Calcium 8.6 mg/dL (8.6-10.3); EGFR African American 108.7 (>60); EGFR Non-African American 89.9 (>60); Globulin 2.9 g/dL (2-4); HDL Cholesterol 35.2 mg/dL; Magnesium 1.9 mg/dL (1.9-2.7); Potassium 3.6 mmol/L (3.5-5.0); Total Bilirubin 0.6 mg/dL (0.2-1.0); Total Protein 5.7 g/dL (6.4-8.9)
[2020-01-15] MEDS: Losartan TAB* 25 MG PO SCH (08:33)
[2020-01-15] MEDS: Metoprolol Tartrate TAB* 25 MG PO SCH (08:34)
[2020-01-15] MEDS: Amoxicillin/Clavulanate TAB* 500 MG PO SCH ×2 (08:34→20:17)
[2020-01-15] MEDS: Aspirin EC TAB* 81 MG TAB.EC PO SCH (08:34)
--- NOTE | 2020-01-15 08:34 | PN ---
Subjective Date of Service: 01/15/20 Interval History: Pt is not feeling as good today as she did yesterday. She states she slept very poorly. Ultimately when she fell asleep she notes the head of the bed was elevated. She denies any LE edema. No diarrhea. Objective Active Medications: Amoxicillin/Clavulanate Potassium (Augmentin Tab*) 500 mg PO BID [facility] Stop: 01/19/20 23:59 Last Admin: 01/14/20 20:33 Dose: 500 mg Aspirin (Aspirin Ec Tab*) 81 mg PO DAILY [facility] Enoxaparin Sodium (Lovenox(*)) 40 mg SUBCUT Q24H [facility] Last Admin: 01/14/20 17:36 Dose: 40 mg Losartan Potassium (Cozaar Tab*) 50 mg PO DAILY [facility] Melatonin (Melatonin) 3 mg PO BEDTIME PRN PRN Reason: insomnia Metoprolol Tartrate (Lopressor Tab*) 25 mg PO BID [facility] Last Admin: 01/14/20 20:33 Dose: 25 mg Vital Signs - 8 hr 01/15/20 04:00 Temperature 98.2 F Pulse Rate 94 Respiratory 20 Rate Blood Pressure 141/89 (mmHg) O2 Sat by Pulse 94 Oximetry Oxygen Devices in Use Now: Nasal Cannula - 3L Appearance: Elderly female sitting up in a chair, NAD Eyes: No Scleral Icterus Ears/Nose/Mouth/Throat: Mucous Membranes Moist Respiratory: - - decreased breath sounds but the sounds that are present are coarse in the L base Cardiovascular: NL Sounds; No Murmurs; No JVD, RRR, No Edema Abdominal: NL Sounds; No Tenderness; No Distention Extremities: No Clubbing, Cyanosis Skin: No Nodules or Sclerosis Neurological: Alert and Oriented x 3 Result Diagrams: 01/15/20 05:57 01/15/20 05:57 Microbiology and Other Data: Microbiology 01/10/20 11:37 Aerobic Blood Culture - Preliminary Blood Venous No Growth Day 3 Anaerobic Blood Culture - Preliminary No Growth Day 3 01/10/20 11:37 Aerobic Blood Culture - Preliminary Blood Venous No Growth Day 3 Anaerobic Blood Culture - Preliminary No Growth Day 3 01/10/20 22:05 Gram Stain - Final Sputum Trach Sputum Culture - Final Normal Luanne 01/10/20 14:20 Urine Culture - Final Urine No Growth (<1,000 CFU/mL) 01/10/20 14:20 Legionella Urinary Antigen - Final Urine Negative Legionella Antigen Streptococcus pneumoniae Ag Screen - Final Negative S. pneumo Antigen Assess/Plan/Problems-Billing Ms Escalante is a 70 yo F with h/o osteoporosis and allergic rhinitis presented with hypoxic respiratory failure secondary to LLL pneumonia requiring intubation and was also found to have Afib and a reduced EF of 15%.She was transferred out of ICU on 01/13/20. - Patient Problems (1) Acute hypoxemic respiratory failure Current Visit: Yes Status: Acute Code(s): J96.01 - ACUTE RESPIRATORY FAILURE WITH HYPOXIA SNOMED Code(s): 512171974 Comment: Secondary to pneumonia and possibly CHF. She does not appear to be overtly fluid overloaded. Continue to wean O2. (2) Pneumonia Current Visit: Yes Status: Acute Code(s): J18.9 - PNEUMONIA, UNSPECIFIED ORGANISM SNOMED Code(s): 569649182 Comment: Pt with LLL pneumonia. Respiratory status is better than on admission but not back to baseline. Continue augmentin for 4 days. She is still requiring supplemental O2. Continue to wean to RA. (3) CHF (congestive heart failure) Current Visit: Yes Status: Acute Code(s): I50.9 - HEART FAILURE, UNSPECIFIED SNOMED Code(s): 91419900 Comment: Pt with severely reduced EF of 10-15%. Plan is for stress test today and catheterization depending on the results of the stress. She previously had a work up about 4 years ago for her LBBB. Continue ARB, metoprolol, ASA. No diuretic yet as she is not appearing fluid overloaded. (4) Elevated troponin Current Visit: Yes Status: Acute Code(s): R79.89 - OTHER SPECIFIED ABNORMAL FINDINGS OF BLOOD CHEMISTRY SNOMED Code(s): 804726725 Comment: Likely secondary to demand ischemia. Stress test today. (5) LFT elevation Current Visit: Yes Status: Acute Code(s): R79.89 - OTHER SPECIFIED ABNORMAL FINDINGS OF BLOOD CHEMISTRY SNOMED Code(s): 001595212 Comment: ? mild shock liver. LFTs are trending down. Follow intermittently. (6) Atrial fibrillation Current Visit: Yes Status: Acute Code(s): I48.91 - UNSPECIFIED ATRIAL FIBRILLATION SNOMED Code(s): 41275937 Comment: Per Dr. Monroy's consult yesterday, pt likely in sinus tachycardia but cannot rule out atrial flutter with 2:1 conduction. Continue metoprolol tartrate 25mg BID. No anticoagulation at this time. (7) DVT prophylaxis Current Visit: Yes Status: Acute Code(s): Z29.9 - ENCOUNTER FOR PROPHYLACTIC MEASURES, UNSPECIFIED SNOMED Code(s): 711603886 Comment: lovenox (8) Full code status Current Visit: Yes Status: Acute Code(s): Z78.9 - OTHER SPECIFIED HEALTH STATUS SNOMED Code(s): 862136965
[2020-01-15] MEDS ORDERED: Regadenoson* 0.4 MG/5 ML SYRINGE ONE (15:07)
[2020-01-15] MEDS: Enoxaparin(*) 40 MG/0.4 ML SYR SUBCUT SCH (17:01)
[2020-01-15] MEDS: Carvedilol TAB* 3.125 MG PO SCH (20:17)
[2020-01-15] MEDS: Melatonin 3 MG TAB PO PRN (20:17)
[2020-01-15] MEDS ORDERED: Carvedilol TAB* 3.125 MG PO SCH (21:00)
[2020-01-16] MEDS: Carvedilol TAB* 3.125 MG PO SCH ×2 (08:50→21:18)
[2020-01-16] MEDS: Amoxicillin/Clavulanate TAB* 500 MG PO SCH ×2 (08:50→21:18)
[2020-01-16] MEDS: Losartan TAB* 25 MG PO SCH (08:50)
[2020-01-16] MEDS: Aspirin EC TAB* 81 MG TAB.EC PO SCH (08:50)
--- NOTE | 2020-01-16 10:17 | PN ---
Subjective Date of Service: 01/16/20 Interval History: Pt is feeling ok. She states this am she felt slightly short of breath but without any intervention she notes that her breathing feels back to where it was for a couple days. She is not coughing or bringing up any sputum at this time. She is still not sleeping well at night but does not ask for any help to aide in this. Objective Active Medications: Amoxicillin/Clavulanate Potassium (Augmentin Tab*) 500 mg PO BID [facility] Stop: 01/19/20 23:59 Last Admin: 01/16/20 08:50 Dose: 500 mg Aspirin (Aspirin Ec Tab*) 81 mg PO DAILY [facility] Last Admin: 01/16/20 08:50 Dose: 81 mg Carvedilol (Coreg Tab*) 6.25 mg PO BID [facility] Last Admin: 01/16/20 08:50 Dose: 6.25 mg Enoxaparin Sodium (Lovenox(*)) 40 mg SUBCUT Q24H [facility] Stop: 01/16/20 23:59 Last Admin: 01/15/20 17:01 Dose: 40 mg Losartan Potassium (Cozaar Tab*) 50 mg PO DAILY [facility] Last Admin: 01/16/20 08:50 Dose: 50 mg Melatonin (Melatonin) 3 mg PO BEDTIME PRN PRN Reason: insomnia Last Admin: 01/15/20 20:17 Dose: 3 mg Vital Signs - 8 hr 01/16/20 01/16/20 03:00 08:00 Temperature 98 F 99.8 F Pulse Rate 91 100 Respiratory 16 20 Rate Blood Pressure 123/72 143/82 (mmHg) O2 Sat by Pulse 96 95 Oximetry Oxygen Devices in Use Now: Nasal Cannula - 2L Appearance: Elderly female sitting up in bed, NAD Eyes: No Scleral Icterus Ears/Nose/Mouth/Throat: Mucous Membranes Moist Respiratory: Symmetrical Chest Expansion and Respiratory Effort, - - slightly decreased breath sounds at the L base compared to the R otherwise lungs are clear Cardiovascular: NL Sounds; No Murmurs; No JVD, No Edema, - - HR regular but mildly elevated Abdominal: NL Sounds; No Tenderness; No Distention Extremities: No Clubbing, Cyanosis Skin: No Nodules or Sclerosis Neurological: Alert and Oriented x 3 Result Diagrams: 01/15/20 05:57 01/15/20 05:57 Microbiology and Other Data: Microbiology 01/10/20 11:37 Aerobic Blood Culture - Preliminary Blood Venous No Growth Day 3 Anaerobic Blood Culture - Preliminary No Growth Day 3 01/10/20 11:37 Aerobic Blood Culture - Preliminary Blood Venous No Growth Day 3 Anaerobic Blood Culture - Preliminary No Growth Day 3 01/10/20 22:05 Gram Stain - Final Sputum Trach Sputum Culture - Final Normal Luanne 01/10/20 14:20 Urine Culture - Final Urine No Growth (<1,000 CFU/mL) 01/10/20 14:20 Legionella Urinary Antigen - Final Urine Negative Legionella Antigen Streptococcus pneumoniae Ag Screen - Final Negative S. pneumo Antigen Assess/Plan/Problems-Billing Ms Escalante is a 70 yo F with h/o osteoporosis and allergic rhinitis presented with hypoxic respiratory failure secondary to LLL pneumonia requiring intubation and was also found to have Afib and a reduced EF of 15%.She was transferred out of ICU on 01/13/20. - Patient Problems (1) Acute hypoxemic respiratory failure Current Visit: Yes Status: Acute Code(s): J96.01 - ACUTE RESPIRATORY FAILURE WITH HYPOXIA SNOMED Code(s): 588863062 Comment: Secondary to pneumonia and possibly CHF. She does not appear to be overtly fluid overloaded. Continue to wean O2. (2) Pneumonia Current Visit: Yes Status: Acute Code(s): J18.9 - PNEUMONIA, UNSPECIFIED ORGANISM SNOMED Code(s): 895732619 Comment: Pt with LLL pneumonia. Respiratory status is better than on admission but not back to baseline. I am encouraged by the fact that her O2 has been able to be weaned and her HR is improving. Continue augmentin for 3 more days. Continue to wean to RA. (3) CHF (congestive heart failure) Current Visit: Yes Status: Acute Code(s): I50.9 - HEART FAILURE, UNSPECIFIED SNOMED Code(s): 22338410 Comment: Pt with severely reduced EF of 10-15%. Stress test done yesterday revealed markedly reduced EF and per radiology no reversible change. Per Dr. Monroy however, verbally, he told me he was concerned for inferior wall ischemia. Continue ARB, metoprolol, ASA. No diuretic yet as she is not appearing fluid overloaded. Plan for catheterization tomorrow. (4) Elevated troponin Current Visit: Yes Status: Acute Code(s): R79.89 - OTHER SPECIFIED ABNORMAL FINDINGS OF BLOOD CHEMISTRY SNOMED Code(s): 895569988 Comment: Likely secondary to demand ischemia. As above plan for cath tomorrow. (5) LFT elevation Current Visit: Yes Status: Acute Code(s): R79.89 - OTHER SPECIFIED ABNORMAL FINDINGS OF BLOOD CHEMISTRY SNOMED Code(s): 036325516 Comment: ? mild shock liver. LFTs are trending down. Follow intermittently. (6) Atrial fibrillation Current Visit: Yes Status: Acute Code(s): I48.91 - UNSPECIFIED ATRIAL FIBRILLATION SNOMED Code(s): 61060729 Comment: Per Dr. Monroy's consult, pt likely in sinus tachycardia but cannot rule out atrial flutter with 2:1 conduction. Continue metoprolol tartrate 25mg BID. No anticoagulation at this time. (7) DVT prophylaxis Current Visit: Yes Status: Acute Code(s): Z29.9 - ENCOUNTER FOR PROPHYLACTIC MEASURES, UNSPECIFIED SNOMED Code(s): 543045027 Comment: lovenox (8) Full code status Current Visit: Yes Status: Acute Code(s): Z78.9 - OTHER SPECIFIED HEALTH STATUS SNOMED Code(s): 520775116
--- NOTE | 2020-01-16 10:45 | PN ---
Subjective Date of Service: 01/16/20 - CC: SOB, CM, pneumonia Interval History: The patient states her breathing is better, but she still needs O2. Presentation: Last fall had constant CP for a month. [employer] gardening last fall. Acutely: several days rhinorrhea, cough, orthopnea and SOB. On admission CXR read as pneumonia, required intubation. ECHO showed EF 15%, ECG LBBB (old) Medications Active Medications: Amoxicillin/Clavulanate Potassium (Augmentin Tab*) 500 mg PO BID [facility] Stop: 01/19/20 23:59 Last Admin: 01/16/20 08:50 Dose: 500 mg Aspirin (Aspirin Ec Tab*) 81 mg PO DAILY [facility] Last Admin: 01/16/20 08:50 Dose: 81 mg Carvedilol (Coreg Tab*) 6.25 mg PO BID [facility] Last Admin: 01/16/20 08:50 Dose: 6.25 mg Enoxaparin Sodium (Lovenox(*)) 40 mg SUBCUT Q24H [facility] Stop: 01/16/20 23:59 Last Admin: 01/15/20 17:01 Dose: 40 mg Losartan Potassium (Cozaar Tab*) 50 mg PO DAILY [facility] Last Admin: 01/16/20 08:50 Dose: 50 mg Melatonin (Melatonin) 3 mg PO BEDTIME PRN PRN Reason: insomnia Last Admin: 01/15/20 20:17 Dose: 3 mg Objective Vital Signs: Temp Pulse Resp BP Pulse Ox 99.8 F 100 20 143/82 95 01/16/20 08:00 01/16/20 08:00 01/16/20 08:00 01/16/20 08:00 01/16/20 08:00 Oxygen Devices in Use Now: Nasal Cannula - 2L Appearance: Older woman, lying in bed, 30 degrees, comfortable appearing. Eyes: No Scleral Icterus, PERRLA Ears/Nose/Mouth/Throat: Mucous Membranes Moist Neck: NL Appearance and Movements; NL JVP, No Thyroid Enlargement, Masses Respiratory: Symmetrical Chest Expansion and Respiratory Effort - Diminished in the bases bilaterally. Cardiovascular: RRR - soft murmur USB Abdominal: No Hepatosplenomegaly Extremities: No Edema, No Clubbing, Cyanosis Skin: No Rash or Ulcers Neurological: Alert and Oriented x 3, NL Muscle Strength and Tone Laboratory Results: 01/15/20 05:57 01/15/20 05:57 INR (Anticoag Therapy) 1.24 (0.82-1.09) H 01/10/20 11:37 Total Bilirubin 0.60 mg/dL (0.2-1.0) 01/15/20 05:57 AST 43 U/L (13-39) H 01/15/20 05:57 ALT 99 U/L (7-52) H 01/15/20 05:57 Alkaline Phosphatase 95 U/L (34-104) 01/15/20 05:57 Total Protein 5.7 g/dL (6.4-8.9) L 01/15/20 05:57 Albumin 2.8 g/dL (3.2-5.2) L 01/15/20 05:57 Globulin 2.9 g/dL (2-4) 01/15/20 05:57 Albumin/Globulin Ratio 1.0 (1-3) 01/15/20 05:57 Triglycerides 100 mg/dL 01/15/20 05:57 Cholesterol 161 mg/dL 01/15/20 05:57 LDL Cholesterol 106 mg/dL 01/15/20 05:57 HDL Cholesterol 35.2 mg/dL 01/15/20 05:57 TSH 2.86 mcIU/mL (0.34-5.60) 01/14/20 11:03 01/10/20 01/10/20 01/10/20 11:37 18:00 23:30 Troponin I 0.09 H* 0.11 H* 0.11 H* 01/11/20 05:50 Troponin I 0.10 H* Diagnostic Imaging: Patient Name: APRYL SMITH Medical Record#: [id number] Ordering Physician: Donovan Monroy MD Acct.#: [id number] : 1950 Age: 70 Sex: F Location: [address] [place] [address]/TELEMET[employer] Exam Date: 01/15/20 0001 ADM Status: ADM IN Order Information: NUCLEAR CARDIAC STRESS TEST Accession Number: [id number] CPT: 32285 HISTORY: Cardiomyopathy LBBB COMPARISONS: None TECHNIQUE: A 1 day stress/rest myocardial perfusion study was performed, with pharmacologic stress. The stress portion was monitored by Dr. Barajas. Gated SPECT imaging was performed, with CT-based attenuation correction. DOSE: Stress: Technetium 99m tetrofosmin, 2.57 millicuries, injected at 2:28 PM on January 15, 2020 Rest: Technetium 99m tetrofosmin, 10.8 millicuries, injected at 7:15 AM on January 15, 2020 Pharmacologic agent: Lexiscan FINDINGS: CARDIAC MONITORING: No EKG changes consistent with ischemia EF: 19%. The end-diastolic volume is 258 mL TID: 1.06 MOTION: There is diffuse hypokinesia PERFUSION: There is fixed anteroseptal photopenia, suggestive of previous infarct without definite reversibility to suggest ischemia. OTHER: There are bilateral pleural effusions. There is biatrial and biventricular enlargement. IMPRESSION: MARKEDLY DECREASED EJECTION FRACTION. NO REVERSIBLE HYPOPERFUSION TO SUGGEST ISCHEMIA. ASSESSMENT: HIGH RISK. Based on imaging criteria from ACC/AHA 2002. Guideline Update for the Management of Patient's with Chronic Stable Angina, table 23. Noninvasive Risk Stratification. <Electronically signed by Willard Perales MD in OV> 01/15/20 1522 Dictated By: Willard Perales MD Dictated Date/Time: 01/15/201518 Transcribed Date/Time: 01/15/20 151 *[facility]* [place] [address] Fax #: [phone] Transthoracic Echocardiogram Patient: Apryl Smith : 1950 Study Date: 01/13/2020 Age: 70 Gender: F HR: 118 bpm Height: 65 in /165.1 cm BSA: 1.75 m^2 Weight: 149.7 lb /68 kg BMI: 25 kg/m^2 *Newspaper Manager: * Rachel Oro *Referring Physician: * Kevin Navas *Reading Physician: * Rosales Starr MD Indications: Cardiomyopathy. History: Dyspnea. Atrial fibrillation. Risk factors: ETOH. Current tobacco use. Conclusions Summary: - Left ventricle: The cavity size is severely dilated. Wall thickness is normal. Systolic function is severely reduced. The estimated ejection fraction is 10-15%. - Regional wall motion abnormality: Dyskinesis of the mid anterior and basal-mid inferoseptal myocardium; akinesis of the basal and apical anterior, basal-mid anteroseptal, basal-mid inferior, and apical septal myocardium; hypokinesis of the apical inferior, mid inferolateral, mid anterolateral, apical lateral, and apical myocardium. - Right ventricle: Systolic function is mildly reduced. - Mitral valve: There is moderate regurgitation. - Pericardium, extracardiac: There is a right pleural effusion and a left pleural effusion. - Pulmonary arteries: Systolic pressure is severely increased, estimated to be 62 mm Hg. This report is only to be considered final once signed by the Provider(s) as displayed in the "<Electronically Signed by >" field (s). Absence of a signature indicates the report is in a draft status and still needs to be finalized. In the event this document was created by someone other than the signing Provider, the individual initiating the document will be listed in the "Entered by:" or "Dictated by:" kerr. EKG Data: ST, LBBB Assessment/Plan 70 yo who presented with SOB, severe pulmonary HTN, severe CM required intubation, now extubated feeling better but not at best baseline. CAD: Possible MT by hx last fall, 1month CP and new FUNEZ. Mild bump in trops this admission (stable/even). Stress test showing fixed and reversable ischemia. Lipids good for primary prevention, will hold off on statin until LFT's improved , cath completed. Plan: cath when able. Poss. in AM, check PA pressure today. CM: Severe, on ARB, Coreg and can advance based on vitals. Coreg dose increased last night. Adding aldactone, will also bring KCl level up. LFT's improving. Differential: LBBB and/or ischemic, hypoxemia could also contribute. As above, cath planned. Getting old records from primary MD before she moved to [place], per pt had an echo, stress test. ID: On Augmentin, WBC normalized, tx via hospitalists.
[2020-01-16] MEDS: Spironolactone TAB* 25 MG PO SCH (12:30)
--- NOTE | 2020-01-16 13:10 | ECHO ---
*[facility]* [place] [address] Fax #: [phone] Limited Transthoracic Echocardiogram Patient: Apryl Escalante : 1950 Study Date: 01/16/2020 Age: 70 Gender: F HR: 78 bpm Height: 65 in /165.1 cm BSA: 1.77 m^2 Weight: 152.7 lb /69.4 kg BMI: 25.5 kg/m^2 *Rebeamer: * Madonna Pascual RDCS RN *Referring Physician: * Idalia Miller MD *Reading Physician: * Idalia Miller MD Indications: Congestive Heart Failure. Cardiomyopathy. History: Pneumonia with hypoxic respiratory failure. Atrial fibrillation. LBBB. ETOH use. Risk factors: Current tobacco use. Conclusions Summary: - Left ventricle: Systolic function is severely reduced. The estimated ejection fraction is 15-20%. Only the base of the posterior lateral wall moves well. Septum is markedly dyskinetic c/w LBBB. - Pulmonary arteries: Systolic pressure is moderately increased, estimated to be 46 mm Hg. - Compared with prior study of 01/13/2020, ejection fraction previously 10-15%, pulmonary artery pressure previously 62 mmHg. Study data: Transthoracic echocardiogram, limited study. This is a LIMITED study to check pulmonary artery pressure. A full echocardiogram was done on 01/13/2020. Procedure: Transthoracic echocardiography was performed. Image quality was fair. Location: Bedside. Patient status: Inpatient. Patient room number: 432. Rhythm: Normal sinus rhythm. Findings Left ventricle: Systolic function is severely reduced. The estimated ejection fraction is 15-20%. Tricuspid valve: The leaflets are normal thickness. There is mild regurgitation. Pulmonary arteries: Systolic pressure is moderately increased, estimated to be 46 mm Hg. Systemic veins: Inferior vena cava: The vessel is normal in size. There is (>= 50%) respiratory change in the IVC dimension. Measurements Right ventricle Value Pulmonary artery Value Pressure, S 46 mm Hg Pressure, S 46.0 mm Hg Right atrium Value Inferior vena cava Value Estimated RAP 3 mm Hg Diam 2.0 cm Tricuspid valve Value Peak RV-RA grad, S 43 mm Hg Max TR leonel 3.26 m/sec Legend: (L) and (H) bronwyn values outside specified reference range. Prepared and electronically signed by Idalia Miller MD 01/16/2020 13:09
[2020-01-16] MEDS: Enoxaparin(*) 40 MG/0.4 ML SYR SUBCUT SCH (17:07)
[2020-01-16] MEDS ORDERED: Furosemide IV* 10 MG/ML 2 ML VIAL (20 MG) IV ONE (17:48)
[2020-01-16] MEDS ORDERED: Potassium Chlor TAB* 20 MEQ TAB.ER PO ONE (17:49)
[2020-01-16] MEDS ORDERED: Potassium Chlor TAB* 10 MEQ TAB.ER PO ONE (17:49)
[2020-01-16] MEDS: Melatonin 3 MG TAB PO PRN (21:18)
[2020-01-17 06:39] LABS: Albumin 3.2 g/dL (3.2-5.2); BUN/Creatinine Ratio 19.7 (8-20); Calcium 9.3 mg/dL (8.6-10.3); EGFR African American 98.2 (>60); EGFR Non-African American 81.2 (>60); Globulin 3.1 g/dL (2-4); Potassium 3.8 mmol/L (3.5-5.0); Total Bilirubin 0.6 mg/dL (0.2-1.0); Total Protein 6.3 g/dL (6.4-8.9)
[2020-01-17] MEDS ORDERED: Furosemide IV* 10 MG/ML VIAL (40 MG) IV ONE ×2 (08:41→17:00)
[2020-01-17 08:42] LABS: INR 1.37 (0.82-1.09)
[2020-01-17] MEDS ORDERED: Potassium Chlor TAB* 10 MEQ TAB.ER PO ONE (08:42)
--- NOTE | 2020-01-17 08:54 | PN ---
<Valentina Khoury - Last Filed: 01/17/20 09:36> Subjective Date of Service: 01/17/20 - newly found severe LV dysfunction , CAP, LBBB, dilated LV Interval History: The patient states her breathing is better, but she still needs O2. Presentation: Last fall had constant CP for a month. [employer] gardening last fall. Acutely: several days rhinorrhea, cough, orthopnea and SOB. On admission CXR read as pneumonia, required intubation. ECHO showed EF 15%, ECG LBBB (old) Fixed anteroseptal defect on nuclear imaging on 01/15/20, no ischemia. Covid 19 test negative on 01/10/20. Medications Active Medications: Amoxicillin/Clavulanate Potassium (Augmentin Tab*) 500 mg PO BID [facility] Stop: 01/19/20 23:59 Last Admin: 01/16/20 21:18 Dose: 500 mg Aspirin (Aspirin Ec Tab*) 81 mg PO DAILY [facility] Last Admin: 01/16/20 08:50 Dose: 81 mg Carvedilol (Coreg Tab*) 6.25 mg PO BID [facility] Last Admin: 01/16/20 21:18 Dose: 6.25 mg Furosemide (Lasix Iv*) 40 mg IV ONCE ONE Stop: 01/17/20 08:42 Losartan Potassium (Cozaar Tab*) 50 mg PO DAILY [facility] Last Admin: 01/16/20 08:50 Dose: 50 mg Melatonin (Melatonin) 3 mg PO BEDTIME PRN PRN Reason: insomnia Last Admin: 01/16/20 21:18 Dose: 3 mg Potassium Chloride (Klor Con Er Tab*) 40 meq PO ONCE ONE Stop: 01/17/20 08:43 Spironolactone (Aldactone Tab*) 25 mg PO DAILY [facility] Last Admin: 01/16/20 12:30 Dose: 25 mg Objective Vital Signs: Temp Pulse Resp BP Pulse Ox 99.9 F 92 20 130/78 97 01/17/20 08:23 01/17/20 08:23 01/17/20 08:23 01/17/20 08:23 01/17/20 08:23 Oxygen Devices in Use Now: Nasal Cannula Appearance: Older woman, lying in bed, 30 degrees, comfortable appearing. Eyes: No Scleral Icterus, PERRLA Ears/Nose/Mouth/Throat: Mucous Membranes Moist Neck: NL Appearance and Movements; NL JVP, No Thyroid Enlargement, Masses Respiratory: Symmetrical Chest Expansion and Respiratory Effort - Diminished in the bases bilaterally with inspiratory rales in left base. Cardiovascular: RRR - soft murmur USB Abdominal: No Hepatosplenomegaly Extremities: No Edema, No Clubbing, Cyanosis Skin: No Rash or Ulcers Neurological: Alert and Oriented x 3, NL Muscle Strength and Tone Lines/Tubes/Other Access: Clean, Dry and Intact Peripheral IV Laboratory Results: 01/15/20 05:57 01/17/20 05:48 INR (Anticoag Therapy) 1.37 (0.82-1.09) H 01/17/20 08:22 Total Bilirubin 0.60 mg/dL (0.2-1.0) 01/17/20 05:48 AST 41 U/L (13-39) H 01/17/20 05:48 ALT 83 U/L (7-52) H 01/17/20 05:48 Alkaline Phosphatase 85 U/L (34-104) 01/17/20 05:48 B-Natriuretic Peptide 1077 pg/mL (<=100) H 01/16/20 15:35 Total Protein 6.3 g/dL (6.4-8.9) L 01/17/20 05:48 Albumin 3.2 g/dL (3.2-5.2) 01/17/20 05:48 Globulin 3.1 g/dL (2-4) 01/17/20 05:48 Albumin/Globulin Ratio 1.0 (1-3) 01/17/20 05:48 Triglycerides 100 mg/dL 01/15/20 05:57 Cholesterol 161 mg/dL 01/15/20 05:57 LDL Cholesterol 106 mg/dL 01/15/20 05:57 HDL Cholesterol 35.2 mg/dL 01/15/20 05:57 TSH 2.86 mcIU/mL (0.34-5.60) 01/14/20 11:03 01/10/20 01/10/20 01/10/20 11:37 18:00 23:30 Troponin I 0.09 H* 0.11 H* 0.11 H* 01/11/20 05:50 Troponin I 0.10 H* Laboratory Results - last 24 hr 01/16/20 01/17/20 01/17/20 15:35 05:48 08:22 INR (Anticoag Therapy) 1.37 H Sodium 140 Potassium 3.8 Chloride 103 Carbon Dioxide 31 Anion Gap 6 BUN 14 Creatinine 0.71 Est GFR ( Amer) 98.2 Est GFR (Non-Af Amer) 81.2 BUN/Creatinine Ratio 19.7 Glucose 106 H Calcium 9.3 Total Bilirubin 0.60 AST 41 H ALT 83 H Alkaline Phosphatase 85 B-Natriuretic Peptide 1077 H Total Protein 6.3 L Albumin 3.2 Globulin 3.1 Albumin/Globulin Ratio 1.0 Diagnostic Imaging: Patient Name: APRYL SMITH Medical Record#: [id number] Ordering Physician: Donvoan Monroy MD Acct.#: [id number] : 1950 Age: 70 Sex: F Location: [address] [place] [address]/TELEMETRY Exam Date: 01/15/202019 ADM Status: ADM IN Order Information: NUCLEAR CARDIAC STRESS TEST Accession Number: [id number] CPT: 74885 HISTORY: Cardiomyopathy LBBB COMPARISONS: None TECHNIQUE: A 1 day stress/rest myocardial perfusion study was performed, with pharmacologic stress. The stress portion was monitored by Dr. Barajas. Gated SPECT imaging was performed, with CT-based attenuation correction. DOSE: Stress: Technetium 99m tetrofosmin, 2.57 millicuries, injected at 2:28 PM on January 15, 2020 Rest: Technetium 99m tetrofosmin, 10.8 millicuries, injected at 7:15 AM on January 15, 2020 Pharmacologic agent: Lexiscan FINDINGS: CARDIAC MONITORING: No EKG changes consistent with ischemia EF: 19%. The end-diastolic volume is 258 mL TID: 1.06 MOTION: There is diffuse hypokinesia PERFUSION: There is fixed anteroseptal photopenia, suggestive of previous infarct without definite reversibility to suggest ischemia. OTHER: There are bilateral pleural effusions. There is biatrial and biventricular enlargement. IMPRESSION: MARKEDLY DECREASED EJECTION FRACTION. NO REVERSIBLE HYPOPERFUSION TO SUGGEST ISCHEMIA. ASSESSMENT: HIGH RISK. Based on imaging criteria from ACC/AHA 2002. Guideline Update for the Management of Patient's with Chronic Stable Angina, table 23. Noninvasive Risk Stratification. <Electronically signed by Willard Perales MD in OV> 01/15/201521 Dictated By: Willard Perales MD Dictated Date/Time: 01/15/201518 Transcribed Date/Time: 01/15/201518 *[facility]* [place] [address] Fax #: [phone] Transthoracic Echocardiogram Patient: Apryl Smith : 1950 Study Date: 01/13/2020 Age: 70 Gender: F HR: 118 bpm Height: 65 in /165.1 cm BSA: 1.75 m^2 Weight: 149.7 lb /68 kg BMI: 25 kg/m^2 *Management Psychologist: Rachel Soto *Referring Physician: * Kevin Navas *Reading Physician: * Rosales Starr MD Indications: Cardiomyopathy. History: Dyspnea. Atrial fibrillation. Risk factors: ETOH. Current tobacco use. Conclusions Summary: - Left ventricle: The cavity size is severely dilated. Wall thickness is normal. Systolic function is severely reduced. The estimated ejection fraction is 10-15%. - Regional wall motion abnormality: Dyskinesis of the mid anterior and basal-mid inferoseptal myocardium; akinesis of the basal and apical anterior, basal-mid anteroseptal, basal-mid inferior, and apical septal myocardium; hypokinesis of the apical inferior, mid inferolateral, mid anterolateral, apical lateral, and apical myocardium. - Right ventricle: Systolic function is mildly reduced. - Mitral valve: There is moderate regurgitation. - Pericardium, extracardiac: There is a right pleural effusion and a left pleural effusion. - Pulmonary arteries: Systolic pressure is severely increased, estimated to be 62 mm Hg. This report is only to be considered final once signed by the Provider(s) as displayed in the "<Electronically Signed by >" field (s). Absence of a signature indicates the report is in a draft status and still needs to be finalized. In the event this document was created by someone other than the signing Provider, the individual initiating the document will be listed in the "Entered by:" or "Dictated by:" kerr. EKG Data: ST, LBBB Assessment/Plan #1 Newly diagnosed severe LV failure; LVEF 15-20%, LVIDd 6.9cm, RVSP 46mmHg. + inspiratory rales in left base with diminished R>L. Breathing continues to improve per patient since she presented to hospital. Will given 40mg IV Lasix x1 , K-Dur 40 MEQ and repeat chemistry at 1400. She is on Coreg 6.25mg OP BID, I would not further titrate given I do not want her to loose her compensatory mechanism ( HR). Continue Losartan 50/day, Aldactone 25/day. Etiology not clear could be due to CAD, viral, LBBB. She had a fixed anteroseptal defect noted on MPI . She needs an eventual C with evaluation of LVEDP. She had a negative Covid test on 01/10/20. Primary team investigating whether or not a repeat test is needed. She is clinically responding to treatment at this time. Tentative LHC 01/18/20. Will follow closely. Recommend daily weights, Strict intake and output, Na+ restricted diet. #2 LBBB; QRS 159. in the future after optimizing CHF medication regimen consider CAREER DEVELOPER. #3 ? CAP; Primary team managing. Clinically patient improving with therapy. initial Covid test negative. Given concern for reduced potential false negative primary team investigating whether or not she needs a repeat test. Clinically treatment may not vary however, this would be important to capture before LHC. #4 Transaminitis; AST/ALT improving. ? hepatic congestion. INR 1.37. She reports daily ETOH consumption however adds it is less than a glass of wine a night. This further supports that it is likely due to hepatic congestion. Will furhter diurese and see if funtion improves. #5 Disposition pending course. continue further IV diureses, will consider LHC tomorrow depending upon clinical course. Case d/w central supply assistant Dr. Barajas who desires further diureses and follow up in regards to whether further Covid testing is needed before proceeding with LHC. Dr. Starr aware of plan of care. Attending: Sheba Barajas <Sheba Barajas - Last Filed: 01/17/20 16:07> Subjective Interval History: Attenidng: Patient seen and examined by me. Will try for a more vigorous diuresis before sending for coronary angiography. Will assess response to lasix 40 mg iv, with goal of some weight/fluid loss. Will watch for contraction alkalosis. Medications Active Medications: Amoxicillin/Clavulanate Potassium (Augmentin Tab*) 500 mg PO BID [facility] Stop: 01/19/20 23:59 Last Admin: 01/17/20 09:43 Dose: 500 mg Aspirin (Aspirin Ec Tab*) 81 mg PO DAILY [facility] Last Admin: 01/17/20 09:43 Dose: 81 mg Carvedilol (Coreg Tab*) 6.25 mg PO BID [facility] Last Admin: 01/17/20 09:43 Dose: 6.25 mg Losartan Potassium (Cozaar Tab*) 50 mg PO DAILY [facility] Last Admin: 01/17/20 09:43 Dose: 50 mg Melatonin (Melatonin) 3 mg PO BEDTIME PRN PRN Reason: insomnia Last Admin: 01/16/20 21:18 Dose: 3 mg Spironolactone (Aldactone Tab*) 25 mg PO DAILY [facility] Last Admin: 01/17/20 09:43 Dose: 25 mg Objective Vital Signs: Temp Pulse Resp BP Pulse Ox 98.6 F 97 20 116/72 96 01/17/20 15:41 01/17/20 15:41 01/17/20 15:41 01/17/20 15:41 01/17/20 15:41 Laboratory Results: 01/15/20 05:57 01/17/20 14:06 INR (Anticoag Therapy) 1.37 (0.82-1.09) H 01/17/20 08:22 Total Bilirubin 0.60 mg/dL (0.2-1.0) 01/17/20 05:48 AST 41 U/L (13-39) H 01/17/20 05:48 ALT 83 U/L (7-52) H 01/17/20 05:48 Alkaline Phosphatase 85 U/L (34-104) 01/17/20 05:48 B-Natriuretic Peptide 1077 pg/mL (<=100) H 01/16/20 15:35 Total Protein 6.3 g/dL (6.4-8.9) L 01/17/20 05:48 Albumin 3.2 g/dL (3.2-5.2) 01/17/20 05:48 Globulin 3.1 g/dL (2-4) 01/17/20 05:48 Albumin/Globulin Ratio 1.0 (1-3) 01/17/20 05:48 Triglycerides 100 mg/dL 01/15/20 05:57 Cholesterol 161 mg/dL 01/15/20 05:57 LDL Cholesterol 106 mg/dL 01/15/20 05:57 HDL Cholesterol 35.2 mg/dL 01/15/20 05:57 TSH 2.86 mcIU/mL (0.34-5.60) 01/14/20 11:03 01/10/20 01/10/20 01/10/20 11:37 18:00 23:30 Troponin I 0.09 H* 0.11 H* 0.11 H* 01/11/20 05:50 Troponin I 0.10 H*
[2020-01-17] MEDS: Losartan TAB* 25 MG PO SCH (09:43)
[2020-01-17] MEDS: Aspirin EC TAB* 81 MG TAB.EC PO SCH (09:43)
[2020-01-17] MEDS: Spironolactone TAB* 25 MG PO SCH (09:43)
[2020-01-17] MEDS: Amoxicillin/Clavulanate TAB* 500 MG PO SCH ×2 (09:43→21:28)
[2020-01-17] MEDS: Carvedilol TAB* 3.125 MG PO SCH ×2 (09:43→21:28)
--- NOTE | 2020-01-17 11:50 | PN ---
Subjective Date of Service: 01/17/20 Interval History: Pt is feeling ok today. Her breathing is comfortable. Her O2 requirements have lessened. She is not coughing. No diarrhea. Objective Active Medications: Amoxicillin/Clavulanate Potassium (Augmentin Tab*) 500 mg PO BID [facility] Stop: 01/19/20 23:59 Last Admin: 01/17/20 09:43 Dose: 500 mg Aspirin (Aspirin Ec Tab*) 81 mg PO DAILY [facility] Last Admin: 01/17/20 09:43 Dose: 81 mg Carvedilol (Coreg Tab*) 6.25 mg PO BID [facility] Last Admin: 01/17/20 09:43 Dose: 6.25 mg Losartan Potassium (Cozaar Tab*) 50 mg PO DAILY [facility] Last Admin: 01/17/20 09:43 Dose: 50 mg Melatonin (Melatonin) 3 mg PO BEDTIME PRN PRN Reason: insomnia Last Admin: 01/16/20 21:18 Dose: 3 mg Spironolactone (Aldactone Tab*) 25 mg PO DAILY [facility] Last Admin: 01/17/20 09:43 Dose: 25 mg Vital Signs - 8 hr 01/17/20 01/17/20 01/17/20 04:14 08:12 08:23 Temperature 97.5 F 99.9 F Pulse Rate 83 92 Respiratory 16 18 20 Rate Blood Pressure 121/69 130/78 (mmHg) O2 Sat by Pulse 96 97 Oximetry Oxygen Devices in Use Now: Nasal Cannula - 1L Appearance: Elderly female sitting up in bed, NAD Eyes: No Scleral Icterus Ears/Nose/Mouth/Throat: Mucous Membranes Moist Respiratory: Symmetrical Chest Expansion and Respiratory Effort, - - slightly decreased breath sounds R<L, mild coarse crackles at the L base Cardiovascular: NL Sounds; No Murmurs; No JVD, RRR, No Edema Abdominal: NL Sounds; No Tenderness; No Distention Extremities: No Clubbing, Cyanosis Skin: No Nodules or Sclerosis Neurological: Alert and Oriented x 3 Result Diagrams: 01/15/20 05:57 01/17/20 05:48 Microbiology and Other Data: Microbiology 01/10/20 11:37 Aerobic Blood Culture - Preliminary Blood Venous No Growth Day 3 Anaerobic Blood Culture - Preliminary No Growth Day 3 01/10/20 11:37 Aerobic Blood Culture - Preliminary Blood Venous No Growth Day 3 Anaerobic Blood Culture - Preliminary No Growth Day 3 01/10/20 22:05 Gram Stain - Final Sputum Trach Sputum Culture - Final Normal Luanne 01/10/20 14:20 Urine Culture - Final Urine No Growth (<1,000 CFU/mL) 01/10/20 14:20 Legionella Urinary Antigen - Final Urine Negative Legionella Antigen Streptococcus pneumoniae Ag Screen - Final Negative S. pneumo Antigen Assess/Plan/Problems-Billing Ms Escalante is a 70 yo F with h/o osteoporosis and allergic rhinitis presented with hypoxic respiratory failure secondary to LLL pneumonia requiring intubation and was also found to have Afib and a reduced EF of 15%.She was transferred out of ICU on 01/13/20. - Patient Problems (1) Acute hypoxemic respiratory failure Current Visit: Yes Status: Acute Code(s): J96.01 - ACUTE RESPIRATORY FAILURE WITH HYPOXIA SNOMED Code(s): 577781613 Comment: Secondary to pneumonia and possibly CHF. She does not appear to be overtly fluid overloaded but she was diuresed yesterday per cardiology. She is receiving IV diuresis again today. O2 requirements are much less. I suspect she will be on RA by this afternoon. As she has shown continual improvement I do not believe she needs to be retested for COVID. (2) Pneumonia Current Visit: Yes Status: Acute Code(s): J18.9 - PNEUMONIA, UNSPECIFIED ORGANISM SNOMED Code(s): 606952920 Comment: Pt with LLL pneumonia. Respiratory status is better than on admission and now close to baseline. Continue augmentin for 2 more days. Continue to wean to RA. (3) CHF (congestive heart failure) Current Visit: Yes Status: Acute Code(s): I50.9 - HEART FAILURE, UNSPECIFIED SNOMED Code(s): 88455486 Comment: Pt with severely reduced EF of 10-15%. Stress test revealed markedly reduced EF and per radiology no reversible change. Per Dr. Monroy however, verbally, he told me he was concerned for inferior wall ischemia. Continue ARB, metoprolol, ASA. She has been diuresed per cardiology. Plan for cath tomorrow after further diuresis. (4) Elevated troponin Current Visit: Yes Status: Acute Code(s): R79.89 - OTHER SPECIFIED ABNORMAL FINDINGS OF BLOOD CHEMISTRY SNOMED Code(s): 347521862 Comment: Likely secondary to demand ischemia. As above plan for cath tomorrow. (5) LFT elevation Current Visit: Yes Status: Acute Code(s): R79.89 - OTHER SPECIFIED ABNORMAL FINDINGS OF BLOOD CHEMISTRY SNOMED Code(s): 512041744 Comment: ? mild shock liver/passive congestion. LFTs are trending down. Follow intermittently. (6) Atrial fibrillation Current Visit: Yes Status: Acute Code(s): I48.91 - UNSPECIFIED ATRIAL FIBRILLATION SNOMED Code(s): 72501363 Comment: Per Dr. Monroy's consult, pt likely in sinus tachycardia but cannot rule out atrial flutter with 2:1 conduction. Continue metoprolol tartrate 25mg BID. No anticoagulation at this time. (7) DVT prophylaxis Current Visit: Yes Status: Acute Code(s): Z29.9 - ENCOUNTER FOR PROPHYLACTIC MEASURES, UNSPECIFIED SNOMED Code(s): 151297334 Comment: lovenox (8) Full code status Current Visit: Yes Status: Acute Code(s): Z78.9 - OTHER SPECIFIED HEALTH STATUS SNOMED Code(s): 754306033
[2020-01-17 14:34] LABS: Calcium 9.3 mg/dL (8.6-10.3); EGFR African American 80.9 (>60); EGFR Non-African American 66.8 (>60); Magnesium 1.8 mg/dL (1.9-2.7); Potassium 4.1 mmol/L (3.5-5.0)
[2020-01-17] MEDS ORDERED: Magnesium Sulfate 2 GM IV* 2 GM/50 ML BAG IVPB ONE (14:50)
[2020-01-17] MEDS ORDERED: Potassium Chlor TAB* 20 MEQ TAB.ER PO ONE (16:14)
[2020-01-17] MEDS: Melatonin 3 MG TAB PO PRN (21:28)
--- NOTE | 2020-01-18 08:14 | PN ---
<Valentina Khoury - Last Filed: 01/18/20 08:59> Subjective Date of Service: 01/18/20 - SHF, PHTN, CAP Interval History: Patient doing well, states she slept all night. Coughing and breathing effort continue to improve. She adds she layed flat all night with sleep. No c/o dizziness, lightheadedness. BP did reduce after IV diuresis yesterday. No c/o chest pain, fever, palpitations. Medications Active Medications: Amoxicillin/Clavulanate Potassium (Augmentin Tab*) 500 mg PO BID [facility] Stop: 01/19/20 23:59 Last Admin: 01/17/20 21:28 Dose: 500 mg Aspirin (Aspirin Ec Tab*) 81 mg PO DAILY [facility] Last Admin: 01/17/20 09:43 Dose: 81 mg Carvedilol (Coreg Tab*) 6.25 mg PO BID [facility] Last Admin: 01/17/20 21:28 Dose: 6.25 mg Losartan Potassium (Cozaar Tab*) 50 mg PO DAILY [facility] Last Admin: 01/17/20 09:43 Dose: 50 mg Melatonin (Melatonin) 3 mg PO BEDTIME PRN PRN Reason: insomnia Last Admin: 01/17/20 21:28 Dose: 3 mg Spironolactone (Aldactone Tab*) 25 mg PO DAILY [facility] Last Admin: 01/17/20 09:43 Dose: 25 mg Objective Vital Signs: Temp Pulse Resp BP Pulse Ox 98.9 F 82 18 114/71 97 01/18/20 07:54 01/18/20 07:54 01/18/20 07:58 01/18/20 07:54 01/18/20 07:54 Oxygen Devices in Use Now: Nasal Cannula Appearance: Older woman, lying in bed, 30 degrees, comfortable appearing. Eyes: No Scleral Icterus, PERRLA Ears/Nose/Mouth/Throat: Mucous Membranes Moist Neck: NL Appearance and Movements; NL JVP, No Thyroid Enlargement, Masses Respiratory: Symmetrical Chest Expansion and Respiratory Effort - Diminished in the bases bilaterally with inspiratory rales in left base. Cardiovascular: RRR - soft murmur USB Abdominal: No Hepatosplenomegaly Extremities: No Edema, No Clubbing, Cyanosis Skin: No Rash or Ulcers Neurological: Alert and Oriented x 3, NL Muscle Strength and Tone Lines/Tubes/Other Access: Clean, Dry and Intact Peripheral IV Laboratory Results: 01/15/20 05:57 01/17/20 14:06 INR (Anticoag Therapy) 1.37 (0.82-1.09) H 01/17/20 08:22 Total Bilirubin 0.60 mg/dL (0.2-1.0) 01/17/20 05:48 AST 41 U/L (13-39) H 01/17/20 05:48 ALT 83 U/L (7-52) H 01/17/20 05:48 Alkaline Phosphatase 85 U/L (34-104) 01/17/20 05:48 B-Natriuretic Peptide 1077 pg/mL (<=100) H 01/16/20 15:35 Total Protein 6.3 g/dL (6.4-8.9) L 01/17/20 05:48 Albumin 3.2 g/dL (3.2-5.2) 01/17/20 05:48 Globulin 3.1 g/dL (2-4) 01/17/20 05:48 Albumin/Globulin Ratio 1.0 (1-3) 01/17/20 05:48 Triglycerides 100 mg/dL 01/15/20 05:57 Cholesterol 161 mg/dL 01/15/20 05:57 LDL Cholesterol 106 mg/dL 01/15/20 05:57 HDL Cholesterol 35.2 mg/dL 01/15/20 05:57 TSH 2.86 mcIU/mL (0.34-5.60) 01/14/20 11:03 01/10/20 01/10/20 01/10/20 11:37 18:00 23:30 Troponin I 0.09 H* 0.11 H* 0.11 H* 01/11/20 05:50 Troponin I 0.10 H* Laboratory Results - last 24 hr 01/17/20 01/17/20 08:22 14:06 INR (Anticoag Therapy) 1.37 H Sodium 139 Potassium 4.1 Chloride 102 Carbon Dioxide 31 Anion Gap 6 BUN 16 Creatinine 0.84 Est GFR ( Amer) 80.9 Est GFR (Non-Af Amer) 66.8 BUN/Creatinine Ratio 19.0 Glucose 123 H Calcium 9.3 Magnesium 1.8 L Diagnostic Imaging: Patient Name: APRYL SMITH Medical Record#: [id number] Ordering Physician: [facility] [id number] : 1950 Age: 70 Sex: F Location: [address] [place] [address] MEDICAL/TELEMETRY Exam Date: 01/15/202019 ADM Status: ADM IN Order Information: NUCLEAR CARDIAC STRESS TEST Accession Number: [id number] CPT: 50404 HISTORY: Cardiomyopathy LBBB COMPARISONS: None TECHNIQUE: A 1 day stress/rest myocardial perfusion study was performed, with pharmacologic stress. The stress portion was monitored by Dr. Barajas. Gated SPECT imaging was performed, with CT-based attenuation correction. DOSE: Stress: Technetium 99m tetrofosmin, 2.57 millicuries, injected at 2:28 PM on January 15, 2020 Rest: Technetium 99m tetrofosmin, 10.8 millicuries, injected at 7:15 AM on January 15, 2020 Pharmacologic agent: Lexiscan FINDINGS: CARDIAC MONITORING: No EKG changes consistent with ischemia EF: 19%. The end-diastolic volume is 258 mL TID: 1.06 MOTION: There is diffuse hypokinesia PERFUSION: There is fixed anteroseptal photopenia, suggestive of previous infarct without definite reversibility to suggest ischemia. OTHER: There are bilateral pleural effusions. There is biatrial and biventricular enlargement. IMPRESSION: MARKEDLY DECREASED EJECTION FRACTION. NO REVERSIBLE HYPOPERFUSION TO SUGGEST ISCHEMIA. ASSESSMENT: HIGH RISK. Based on imaging criteria from ACC/AHA 2002. Guideline Update for the Management of Patient's with Chronic Stable Angina, table 23. Noninvasive Risk Stratification. 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 History: Dyspnea. Atrial fibrillation. Risk factors: ETOH. Current tobacco use. Conclusions Summary: - Left ventricle: The cavity size is severely dilated. Wall thickness is normal. Systolic function is severely reduced. The estimated ejection fraction is 10-15%. - Regional wall motion abnormality: Dyskinesis of the mid anterior and basal-mid inferoseptal myocardium; akinesis of the basal and apical anterior, basal-mid anteroseptal, basal-mid inferior, and apical septal myocardium; hypokinesis of the apical inferior, mid inferolateral, mid anterolateral, apical lateral, and apical myocardium. - Right ventricle: Systolic function is mildly reduced. - Mitral valve: There is moderate regurgitation. - Pericardium, extracardiac: There is a right pleural effusion and a left pleural effusion. - Pulmonary arteries: Systolic pressure is severely increased, estimated to be 62 mm Hg. This report is only to be considered final once signed by the Provider(s) as displayed in the "<Electronically Signed by >" field (s). Absence of a signature indicates the report is in a draft status and still needs to be finalized. In the event this document was created by someone other than the signing Provider, the individual initiating the document will be listed in the "Entered by:" or "Dictated by:" kerr. EKG Data: ST, LBBB Today's ECG pending. Assessment/Plan #1 Newly diagnosed severe LV failure; LVEF 15-20%, LVIDd 6.9cm, RVSP 46mmHg. + inspiratory rales in left base with diminished R>L. Breathing continues to improve per patient since she presented to hospital. She responded well to IV diuresis yesterday with Will given 40mg IV Lasix x1, today's chemistry is pending. She was able to lay flat all night and reports she was able to sleep without waking up coughing or short of breath. She appears compensated for diagnostic LHC today. Indication for LHC reviewed with patient and family yesterday. I personally reviewed risks which include but are not limited to bleeding, infection, vessel damage, contrast induced nephropathy, possible referral for intervention / CABG, IA/CVA/. all questions answered and she wishes to proceed. Consent to be obtained by interveonalist Dr. Barajas. Continue Coreg 6.25mg PO BID, Losartan 50/day, Aldactone 25/day. Etiology not clear could be due to CAD, viral, LBBB. She had a fixed anteroseptal defect noted on MPI . She had a negative Covid test on 01/10/20.d. Recommend daily weights, Strict intake and output, Na+ restricted diet. #2 LBBB; QRS 159. 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 #3 ? CAP presenting with hypoxia that required intubation; Primary team managing. Clinically patient improving with therapy. initial Covid test negative. On Augmentin therapy. #4 Transaminitis; AST/ALT improving. ? hepatic congestion. INR 1.37. She reports daily ETOH consumption however adds it is less than a glass of wine a night. This further supports that it is likely due to hepatic congestion. Will further diurese and see if function improves. #5 Disposition pending course. Patient full code. Will plan for [facility] today. pre cath orders placed. Patient aware that if she needs intervention she would need to be transferred. She states [facility] would be acceptable and is aware that she would pay for ambulance cost due to [facility] not being the closest facility. Attending: Sheba Barajas <Sheba Barajas - Last Filed: 01/19/20 10:28> Subjective Interval History: Patient personally seen and examined by me. She's had a significant improvement in weight and symptoms with diuresis. Rationale, options, risks and benefits of cardiac catheterization explained, the patient had an opportunity to ask questions and agreed to the procedure. 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 Furosemide (Lasix Tab*) 20 mg PO DAILY [facility] Last Admin: 01/19/20 09:44 Dose: 20 mg Losartan Potassium (Cozaar Tab*) 50 mg PO BID [facility] Last Admin: 01/19/20 09:44 Dose: 50 mg Melatonin (Melatonin) 3 mg PO BEDTIME PRN PRN Reason: insomnia Last Admin: 01/18/20 20:34 Dose: 3 mg Potassium Chloride (Klor Con Er Tab*) 20 meq PO DAILY [facility] Last Admin: 01/19/20 09:44 Dose: 20 meq Spironolactone (Aldactone Tab*) 25 mg PO DAILY [facility] Last Admin: 01/19/20 09:44 Dose: 25 mg Objective Vital Signs: Temp Pulse Resp BP Pulse Ox 98.2 F 81 18 136/70 93 01/19/20 08:00 01/19/20 08:00 01/19/20 08:00 01/19/20 08:00 01/19/20 08:00 Laboratory Results: 01/19/20 05:12 01/19/20 05:15 INR (Anticoag Therapy) 1.37 (0.82-1.09) H 01/17/20 08:22 APTT 33.3 seconds (26.0-38.0) 01/19/20 05:15 Total Bilirubin 0.70 mg/dL (0.2-1.0) 01/19/20 05:15 Direct Bilirubin 0.10 mg/dL (0.03-0.18) 01/19/20 05:15 Indirect Bilirubin 0.6 mg/dL (0.3-1.0) 01/19/20 05:15 AST 41 U/L (13-39) H 01/19/20 05:15 ALT 75 U/L (7-52) H 01/19/20 05:15 Alkaline Phosphatase 74 U/L (34-104) 01/19/20 05:15 B-Natriuretic Peptide 1077 pg/mL (<=100) H 01/16/20 15:35 Total Protein 6.0 g/dL (6.4-8.9) L 01/19/20 05:15 Albumin 3.4 g/dL (3.2-5.2) 01/19/20 05:15 Globulin 2.6 g/dL (2-4) 01/19/20 05:15 Albumin/Globulin Ratio 1.3 (1-3) 01/19/20 05:15 Triglycerides 106 mg/dL 01/19/20 05:15 Cholesterol 182 mg/dL 01/19/20 05:15 LDL Cholesterol 130 mg/dL 01/19/20 05:15 HDL Cholesterol 31.2 mg/dL 01/19/20 05:15 TSH 2.86 mcIU/mL (0.34-5.60) 01/14/20 11:03 01/10/20 01/10/20 01/10/20 11:37 18:00 23:30 Troponin I 0.09 H* 0.11 H* 0.11 H* 01/11/20 05:50 Troponin I 0.10 H*
[2020-01-18 08:22] LABS: Calcium 9.3 mg/dL (8.6-10.3); EGFR African American 92.2 (>60); EGFR Non-African American 76.2 (>60); Magnesium 2.1 mg/dL (1.9-2.7); Potassium 4.2 mmol/L (3.5-5.0)
[2020-01-18] MEDS: Carvedilol TAB* 3.125 MG PO SCH ×2 (08:31→20:34)
[2020-01-18] MEDS: Losartan TAB* 25 MG PO SCH ×2 (08:31→20:34)
[2020-01-18] MEDS: Aspirin EC TAB* 81 MG TAB.EC PO SCH (08:31)
[2020-01-18] MEDS: Amoxicillin/Clavulanate TAB* 500 MG PO SCH ×2 (08:31→20:34)
[2020-01-18] MEDS: Spironolactone TAB* 25 MG PO SCH (08:32)
[2020-01-18] MEDS ORDERED: diPHENhydraMINE PO* 25 MG PO PRN (08:32)
[2020-01-18] MEDS ORDERED: Diazepam TAB(*) 5 MG PO PRN (08:32)
[2020-01-18] MEDS: NS 0.9% 1000 ML** 1,000 ML IV SCH ×2 (09:03→22:10)
[2020-01-18] MEDS ORDERED: fentaNYL* 50 MCG/ML 2 ML VIAL (100 MCG VIAL) ONE (11:00)
[2020-01-18] MEDS ORDERED: Midazolam* 1 MG/ML 5 ML VIAL (5 MG) ONE (11:00)
[2020-01-18] MEDS ORDERED: VERAPAMIL 2.5 MG/ML 2 ML VIAL ** 5 mg/2 ml ONE (11:00)
[2020-01-18] MEDS ORDERED: Heparin(*) 1000 UNIT/ML 10 ML VIAL CATH LAB IV ONE (11:00)
[2020-01-18] MEDS ORDERED: Heparin 2 UNITS/ML IVPREMIX* 2,000 ML IV ONE (11:01)
[2020-01-18] MEDS ORDERED: Lidocaine 1% INJ* 10 MG/ML 30 ML SDV ONE (11:01)
[2020-01-18] MEDS ORDERED: Iohexol 350 (CONTRAST) 200 ML MDV IV ONE ×2 (11:01→11:02)
[2020-01-18] MEDS ORDERED: nitroGLYCERIN DRIP* 25,000 MCG/250 ML BTL ONE (11:01)
--- NOTE | 2020-01-18 11:42 | PN ---
Subjective Date of Service: 01/18/20 Interval History: Pt is feeling well. She states her breathing feels comfortable but she has occasional moist cough. She was able to sleep lying flat last night. No chest pain. No diarrhea. 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 Sodium Chloride (Ns 0.9% 1000 Ml) 1,000 mls @ 75 mls/hr IV .per rate [facility] Last Admin: 01/18/20 09:03 Dose: 75 mls/hr Losartan Potassium (Cozaar Tab*) 50 mg PO DAILY [facility] Last Admin: 01/18/20 08:31 Dose: 50 mg Melatonin (Melatonin) 3 mg PO BEDTIME PRN PRN Reason: insomnia Last Admin: 01/17/20 21:28 Dose: 3 mg Spironolactone (Aldactone Tab*) 25 mg PO DAILY [facility] Last Admin: 01/18/20 08:32 Dose: Not Given Vital Signs - 8 hr 01/18/20 01/18/20 01/18/20 03:49 06:52 07:54 Temperature 98.4 F 98.9 F Pulse Rate 81 82 Respiratory 14 16 Rate Blood Pressure 99/55 120/70 114/71 (mmHg) O2 Sat by Pulse 94 97 Oximetry 01/18/20 01/18/20 07:58 11:03 Temperature Pulse Rate Respiratory 18 16 Rate Blood Pressure (mmHg) O2 Sat by Pulse Oximetry Oxygen Devices in Use Now: Nasal Cannula - 1L Appearance: Elderly female sitting up in bed, NAD Eyes: No Scleral Icterus Ears/Nose/Mouth/Throat: Mucous Membranes Moist Respiratory: Symmetrical Chest Expansion and Respiratory Effort, - - diminished breath sounds at both bases, minimal crackles LLL Cardiovascular: NL Sounds; No Murmurs; No JVD, RRR Abdominal: NL Sounds; No Tenderness; No Distention Extremities: No Clubbing, Cyanosis Skin: No Nodules or Sclerosis Neurological: Alert and Oriented x 3 Result Diagrams: 01/15/20 05:57 01/18/20 08:00 Microbiology and Other Data: Microbiology 01/10/20 11:37 Aerobic Blood Culture - Preliminary Blood Venous No Growth Day 3 Anaerobic Blood Culture - Preliminary No Growth Day 3 01/10/20 11:37 Aerobic Blood Culture - Preliminary Blood Venous No Growth Day 3 Anaerobic Blood Culture - Preliminary No Growth Day 3 01/10/20 22:05 Gram Stain - Final Sputum Trach Sputum Culture - Final Normal Luanne 01/10/20 14:20 Urine Culture - Final Urine No Growth (<1,000 CFU/mL) 01/10/20 14:20 Legionella Urinary Antigen - Final Urine Negative Legionella Antigen Streptococcus pneumoniae Ag Screen - Final Negative S. pneumo Antigen Assess/Plan/Problems-Billing Ms Escalante is a 70 yo F with h/o osteoporosis and allergic rhinitis presented with hypoxic respiratory failure secondary to LLL pneumonia requiring intubation and was also found to have Afib and a reduced EF of 15%.She was transferred out of ICU on 01/13/20. - Patient Problems (1) Acute hypoxemic respiratory failure Current Visit: Yes Status: Acute Code(s): J96.01 - ACUTE RESPIRATORY FAILURE WITH HYPOXIA SNOMED Code(s): 283167094 Comment: Secondary to pneumonia and possibly CHF. She has been diuresed with IV lasix and her respiratory status is stable. The patient remains on 1L O2 but her O2 saturation is mid to high 90's. Will leave O2 in place for now as she is going down for catheterization. (2) Pneumonia Current Visit: Yes Status: Acute Code(s): J18.9 - PNEUMONIA, UNSPECIFIED ORGANISM SNOMED Code(s): 803695113 Comment: Pt with LLL pneumonia. Respiratory status is better than on admission and now close to baseline. Continue augmentin for 1 more day. Continue to wean to RA. (3) CHF (congestive heart failure) Current Visit: Yes Status: Acute Code(s): I50.9 - HEART FAILURE, UNSPECIFIED SNOMED Code(s): 27985481 Comment: Pt is under going catheterization this AM. Await results. Continue losartan 50mg daily, coreg and ASA. Will need ongoing diuresis and close cardiology follow up. (4) Elevated troponin Current Visit: Yes Status: Acute Code(s): R79.89 - OTHER SPECIFIED ABNORMAL FINDINGS OF BLOOD CHEMISTRY SNOMED Code(s): 544669302 Comment: Likely secondary to demand ischemia. Await cath results. (5) LFT elevation Current Visit: Yes Status: Acute Code(s): R79.89 - OTHER SPECIFIED ABNORMAL FINDINGS OF BLOOD CHEMISTRY SNOMED Code(s): 298983201 Comment: ? mild shock liver/passive congestion. LFTs are trending down. Repeat labs tomorrow. (6) Atrial fibrillation Current Visit: Yes Status: Acute Code(s): I48.91 - UNSPECIFIED ATRIAL FIBRILLATION SNOMED Code(s): 22068639 Comment: Per Dr. Monroy's consult, pt likely in sinus tachycardia but cannot rule out atrial flutter with 2:1 conduction. Continue coreg 6.25mg BID. No anticoagulation at this time. (7) DVT prophylaxis Current Visit: Yes Status: Acute Code(s): Z29.9 - ENCOUNTER FOR PROPHYLACTIC MEASURES, UNSPECIFIED SNOMED Code(s): 021832418 Comment: lovenox (8) Full code status Current Visit: Yes Status: Acute Code(s): Z78.9 - OTHER SPECIFIED HEALTH STATUS SNOMED Code(s): 857276150
--- NOTE | 2020-01-18 14:31 | CATH ---
CARDIAC CATHETERIZATION REPORT: DATE OF PROCEDURE: 01/18/20 INDICATION FOR PROCEDURE: Newly diagnosed cardiomyopathy, ejection fraction 15 % to 20%. PROCEDURES: 1. Left heart catheterization. 2. Coronary angiography. CONSENT: The patient was interviewed and examined on the floor of the hospital where the risks, options, and benefits were explained. She had an opportunity to ask questions, understood the above, and wished to proceed with the procedure. PRE-CATHETERIZATION LABORATORY RESULTS: Hemoglobin 13.3 with hematocrit of 39% , platelet count of 214,000. BUN 15, creatinine 0.75, and normal electrolytes. EQUIPMENT UTILIZED: 1. 6-Dominican Slender radial artery sheath, a 2. 5-Dominican femoral artery sheath, and a 3. JL4 diagnostic 5-Dominican catheter, 4. JL3.5 diagnostic catheter, 5 czech. 5. JR4 diagnostic catheter, 5-Dominican. 6. .035 standard J-tip guidewire. 7. Vascular TR band. MEDICATIONS USED DURING THE PROCEDURE: 1% Xylocaine for local anesthetic. The patient was pretreated prior to coming to the calibration laboratory technician with Valium 2.5 mg p.o. DESCRIPTION OF PROCEDURE: The patient was brought to the cardiac calibration laboratory technician. A formal time-out was performed. She was prepped and draped in the usual sterile fashion. Under ultrasound guidance, the right radial artery was punctured after using local anesthetic; however, after several attempts, the guidewire could never be advanced beyond the distal half of the forearm. The radial approach was abandoned and the femoral approach used. After giving local anesthesia to the right femoral artery a 5-Dominican sheath was inserted into the right femoral artery without incident. Through that sheath, a JL4 diagnostic catheter was advanced over an 0.035 wire to cannulate the left main. However, because of the short left main, the left anterior descending was not adequately visualized and the JL4 was exchanged over a guidewire for a JL3.5. Several angiograms were taken in multiple views. The JL3.5 catheter was withdrawn and exchanged for JR4 diagnostic catheter. The JR4 catheter was advanced over a guidewire across the aortic valve and left ventricular pressure measured. The catheter was withdrawn and then used to intubate the right coronary artery. Angiograms were taken in multiple views. The JR4 catheter was then withdrawn over a guidewire. The femoral sheath was removed with manual compression. Successful manual compression of the right femoral artery and placement of TR band on the right radial artery puncture site. Total contrast used was 50 cc, fluoro time was 2.6 minutes, fluoro dose was 361 milligray, and the cine dose was 2562 DAP. Complications: None. The patient was returned to her room in stable condition to recover. RESULTS: HEMODYNAMIC DATA: LVEDP was equal to 15 - 18 mmHg. The aortic pressure was 124 /3/15 - 127/2/22. There was no gradient on pullback of the catheter across the aortic valve. CORONARY ANGIOGRAPHY: 1. Left main: short but angiographically normal. 2. Left anterior descending: angiographically normal. There was a large first diagonal and a small second and third diagonals. All of the diagonal branches vessels were angiographically normal. 3. Circumflex: nondominant but large. There was a smooth, focal 40% to 50% narrowing in the proximal circumflex. There was a large bifurcating first obtuse marginal branch that was angiographically normal. 3. Right coronary artery: was very large and dominant and angiographically normal. CONCLUSIONS: 1. Right dominant coronary artery system as described above with very minimal proximal circumflex irregularity. 2. Mildly elevated left ventricular end-diastolic pressure. [id number]/[facility] #: [id number] [facility]
[2020-01-18] MEDS: Melatonin 3 MG TAB PO PRN (20:34)
[2020-01-19 06:37] LABS: ABS Basophils 0.1 10^3/ul (0-0.2); ABS Eosinophils 0.3 10^3/ul (0-0.6); ABS Lymphocytes 1.4 10^3/ul (1.0-4.8); ABS Monocytes 0.8 10^3/ul (0-0.8); ABS Neutrophils 5.2 10^3/ul (1.5-7.7); Eosinophil % 4.1 %; Hematocrit 40 % (35-47); Hemoglobin 13.8 g/dL (12.0-16.0); Lymphocyte % 18.3 %; Mean Corpuscular HGB Conc 34 g/dL (31-36); Mean Corpuscular Hemoglobin 31 pg (27-31); Mean Corpuscular Volume 92 fL (80-97); Mean Platelet Volume 8.4 fL (7.4-10.4); Nucleated Red Blood Cells % 0.1; Platelet Count 244 10^3/uL (150-450); Red Blood Count 4.39 10^6 /uL (3.70-4.87); Red Cell Distribution Width 14 % (10-15); White Blood Count 7.7 10^3/uL (3.5-10.8)
[2020-01-19 06:59] LABS: ALT 75 U/L (7-52); AST 41 U/L (13-39); Albumin 3.4 g/dL (3.2-5.2); Albumin/Globulin Ratio 1.3 (1-3); Alkaline Phosphatase 74 U/L (34-104); Anion Gap 7 mmol/L (2-11); BUN/Creatinine Ratio 16.2 (8-20); Blood Urea Nitrogen 12 mg/dL (6-24); CO2 Carbon Dioxide 26 mmol/L (22-32); Calcium 9.1 mg/dL (8.6-10.3); Chloride 105 mmol/L (101-111); Cholesterol 182 mg/dL; EGFR African American 93.6 (>60); EGFR Non-African American 77.4 (>60); Globulin 2.6 g/dL (2-4); Glucose 87 mg/dL (70-100); HDL Cholesterol 31.2 mg/dL; Indirect Bilirubin 0.6 mg/dL (0.3-1.0); LDL Cholesterol 130 mg/dL; Magnesium 1.9 mg/dL (1.9-2.7); Potassium 4.3 mmol/L (3.5-5.0); Sodium 138 mmol/L (135-145); Triglycerides 106 mg/dL
[2020-01-19] MEDS ORDERED: Furosemide TAB* 20 MG PO SCH (09:00)
[2020-01-19] MEDS: Losartan TAB* 25 MG PO SCH ×2 (09:44→21:53)
[2020-01-19] MEDS: Potassium Chlor TAB* 20 MEQ TAB.ER PO SCH (09:44)
[2020-01-19] MEDS: Carvedilol TAB* 3.125 MG PO SCH ×2 (09:44→21:53)
[2020-01-19] MEDS: Spironolactone TAB* 25 MG PO SCH (09:44)
[2020-01-19] MEDS: Aspirin EC TAB* 81 MG TAB.EC PO SCH (09:44)
[2020-01-19] MEDS: Amoxicillin/Clavulanate TAB* 500 MG PO SCH ×2 (09:44→21:53)
--- NOTE | 2020-01-19 10:49 | PN ---
Subjective Date of Service: 01/19/20 Interval History: Pt is feeling ok. She states she feels like she needs to cough but denies feeling SOB. She has not urinated after getting her oral lasix this AM. 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 Furosemide (Lasix Tab*) 20 mg PO DAILY [facility] Last Admin: 01/19/20 09:44 Dose: 20 mg Losartan Potassium (Cozaar Tab*) 50 mg PO BID [facility] Last Admin: 01/19/20 09:44 Dose: 50 mg Melatonin (Melatonin) 3 mg PO BEDTIME PRN PRN Reason: insomnia Last Admin: 01/18/20 20:34 Dose: 3 mg Potassium Chloride (Klor Con Er Tab*) 20 meq PO DAILY [facility] Last Admin: 01/19/20 09:44 Dose: 20 meq Spironolactone (Aldactone Tab*) 25 mg PO DAILY [facility] Last Admin: 01/19/20 09:44 Dose: 25 mg Vital Signs - 8 hr 01/19/20 01/19/20 03:19 08:00 Temperature 97.9 F 98.2 F Pulse Rate 80 81 Respiratory 18 Rate Blood Pressure 133/63 136/70 (mmHg) O2 Sat by Pulse 94 93 Oximetry Oxygen Devices in Use Now: None Appearance: Elderly female sitting up in bed, NAD Eyes: No Scleral Icterus Ears/Nose/Mouth/Throat: Mucous Membranes Moist Respiratory: Symmetrical Chest Expansion and Respiratory Effort, Clear to Auscultation - diminished breath sounds in the bases with few crackles at the L base Cardiovascular: NL Sounds; No Murmurs; No JVD, RRR, No Edema Abdominal: NL Sounds; No Tenderness; No Distention Extremities: No Clubbing, Cyanosis Skin: No Rash or Ulcers Neurological: Alert and Oriented x 3 Result Diagrams: 01/19/20 05:12 01/19/20 05:15 Microbiology and Other Data: Microbiology 01/10/20 11:37 Aerobic Blood Culture - Preliminary Blood Venous No Growth Day 3 Anaerobic Blood Culture - Preliminary No Growth Day 3 01/10/20 11:37 Aerobic Blood Culture - Preliminary Blood Venous No Growth Day 3 Anaerobic Blood Culture - Preliminary No Growth Day 3 01/10/20 22:05 Gram Stain - Final Sputum Trach Sputum Culture - Final Normal Luanne 01/10/20 14:20 Urine Culture - Final Urine No Growth (<1,000 CFU/mL) 01/10/20 14:20 Legionella Urinary Antigen - Final Urine Negative Legionella Antigen Streptococcus pneumoniae Ag Screen - Final Negative S. pneumo Antigen Assess/Plan/Problems-Billing Ms Escalante is a 70 yo F with h/o osteoporosis and allergic rhinitis presented with hypoxic respiratory failure secondary to LLL pneumonia requiring intubation and was also found to have Afib and a reduced EF of 15%.She was transferred out of ICU on 01/13/20. - Patient Problems (1) Acute hypoxemic respiratory failure Current Visit: Yes Status: Acute Code(s): J96.01 - ACUTE RESPIRATORY FAILURE WITH HYPOXIA SNOMED Code(s): 112076802 Comment: Secondary to pneumonia and possibly CHF. She has been diuresed with IV lasix and her respiratory status had been stable but slightly worse today due to receiving fluid overnight. The patient is now off O2. (2) Pneumonia Current Visit: Yes Status: Acute Code(s): J18.9 - PNEUMONIA, UNSPECIFIED ORGANISM SNOMED Code(s): 312499639 Comment: Pt with LLL pneumonia. Augmentin is complete today. (3) CHF (congestive heart failure) Current Visit: Yes Status: Acute Code(s): I50.9 - HEART FAILURE, UNSPECIFIED SNOMED Code(s): 99200770 Comment: Pt with severe systolic dysfunction with clean coronary arteries. She has a non-ischemic CM. Continue losartan (increased to 50mg BID), coreg 6.25mg BID, ASA. I started lasix 20mg daily but it may not be enough. Monitor urinary response this AM and if poor, will increase to 40mg daily. Possibly home today. Will need close cardiology follow up. (4) Elevated troponin Current Visit: Yes Status: Acute Code(s): R79.89 - OTHER SPECIFIED ABNORMAL FINDINGS OF BLOOD CHEMISTRY SNOMED Code(s): 789799866 Comment: Likely secondary to demand ischemia. No significant coronary artery disease. (5) LFT elevation Current Visit: Yes Status: Acute Code(s): R79.89 - OTHER SPECIFIED ABNORMAL FINDINGS OF BLOOD CHEMISTRY SNOMED Code(s): 101453203 Comment: LFTs stable. Monitor as outpatient. (6) Atrial fibrillation Current Visit: Yes Status: Acute Code(s): I48.91 - UNSPECIFIED ATRIAL FIBRILLATION SNOMED Code(s): 38385971 Comment: Per Dr. Monroy's consult, pt likely in sinus tachycardia but cannot rule out atrial flutter with 2:1 conduction. Continue coreg 6.25mg BID. No anticoagulation at this time. (7) DVT prophylaxis Current Visit: Yes Status: Acute Code(s): Z29.9 - ENCOUNTER FOR PROPHYLACTIC MEASURES, UNSPECIFIED SNOMED Code(s): 998844113 Comment: lovenox (8) Full code status Current Visit: Yes Status: Acute Code(s): Z78.9 - OTHER SPECIFIED HEALTH STATUS SNOMED Code(s): 905410835
--- NOTE | 2020-01-19 11:14 | PN ---
Subjective Date of Service: 01/19/20 Interval History: Patient personally seen and examined by me. She's had a significant improvement in weight and symptoms with diuresis. Rationale, options, risks and benefits of cardiac catheterization explained, the patient had an opportunity to ask questions and agreed to the procedure. 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 Furosemide (Lasix Tab*) 20 mg PO DAILY [facility] Last Admin: 01/19/20 09:44 Dose: 20 mg Losartan Potassium (Cozaar Tab*) 50 mg PO BID [facility] Last Admin: 01/19/20 09:44 Dose: 50 mg Melatonin (Melatonin) 3 mg PO BEDTIME PRN PRN Reason: insomnia Last Admin: 01/18/20 20:34 Dose: 3 mg Potassium Chloride (Klor Con Er Tab*) 20 meq PO DAILY [facility] Last Admin: 01/19/20 09:44 Dose: 20 meq Spironolactone (Aldactone Tab*) 25 mg PO DAILY [facility] Last Admin: 01/19/20 09:44 Dose: 25 mg Objective Vital Signs: Temp Pulse Resp BP Pulse Ox 98.2 F 81 18 136/70 93 01/19/20 08:00 01/19/20 08:00 01/19/20 08:00 01/19/20 08:00 01/19/20 08:00 Oxygen Devices in Use Now: None Appearance: Older woman, lying in bed, 30 degrees, comfortable appearing. Eyes: No Scleral Icterus, PERRLA Ears/Nose/Mouth/Throat: Mucous Membranes Moist Neck: NL Appearance and Movements; NL JVP, No Thyroid Enlargement, Masses Respiratory: Symmetrical Chest Expansion and Respiratory Effort - Diminished in the bases bilaterally with inspiratory rales in left base. Cardiovascular: RRR - soft murmur USB Abdominal: No Hepatosplenomegaly Extremities: No Edema, No Clubbing, Cyanosis Skin: No Rash or Ulcers Neurological: Alert and Oriented x 3, NL Muscle Strength and Tone Lines/Tubes/Other Access: Clean, Dry and Intact Peripheral IV Laboratory Results: 01/19/20 05:12 01/19/20 05:15 INR (Anticoag Therapy) 1.37 (0.82-1.09) H 01/17/20 08:22 APTT 33.3 seconds (26.0-38.0) 01/19/20 05:15 Total Bilirubin 0.70 mg/dL (0.2-1.0) 01/19/20 05:15 Direct Bilirubin 0.10 mg/dL (0.03-0.18) 01/19/20 05:15 Indirect Bilirubin 0.6 mg/dL (0.3-1.0) 01/19/20 05:15 AST 41 U/L (13-39) H 01/19/20 05:15 ALT 75 U/L (7-52) H 01/19/20 05:15 Alkaline Phosphatase 74 U/L (34-104) 01/19/20 05:15 B-Natriuretic Peptide 1077 pg/mL (<=100) H 01/16/20 15:35 Total Protein 6.0 g/dL (6.4-8.9) L 01/19/20 05:15 Albumin 3.4 g/dL (3.2-5.2) 01/19/20 05:15 Globulin 2.6 g/dL (2-4) 01/19/20 05:15 Albumin/Globulin Ratio 1.3 (1-3) 01/19/20 05:15 Triglycerides 106 mg/dL 01/19/20 05:15 Cholesterol 182 mg/dL 01/19/20 05:15 LDL Cholesterol 130 mg/dL 01/19/20 05:15 HDL Cholesterol 31.2 mg/dL 01/19/20 05:15 TSH 2.86 mcIU/mL (0.34-5.60) 01/14/20 11:03 01/10/20 01/10/20 01/10/20 11:37 18:00 23:30 Troponin I 0.09 H* 0.11 H* 0.11 H* 01/11/20 05:50 Troponin I 0.10 H* Diagnostic Imaging: Patient Name: APRYL SMITH Medical Record#: [id number] Ordering Physician: Donovan Monroy MD Acct.#: [id number] : 1950 Age: 70 Sex: F Location: [address] [place] [address]/TELEMETRY Exam Date: 01/15/202019 ADM Status: ADM IN Order Information: NUCLEAR CARDIAC STRESS TEST Accession Number: [id number] CPT: 15053 HISTORY: Cardiomyopathy LBBB COMPARISONS: None TECHNIQUE: A 1 day stress/rest myocardial perfusion study was performed, with pharmacologic stress. The stress portion was monitored by Dr. Barajas. Gated SPECT imaging was performed, with CT-based attenuation correction. DOSE: Stress: Technetium 99m tetrofosmin, 2.57 millicuries, injected at 2:28 PM on January 15, 2020 Rest: Technetium 99m tetrofosmin, 10.8 millicuries, injected at 7:15 AM on January 15, 2020 Pharmacologic agent: Lexiscan FINDINGS: CARDIAC MONITORING: No EKG changes consistent with ischemia EF: 19%. The end-diastolic volume is 258 mL TID: 1.06 MOTION: There is diffuse hypokinesia PERFUSION: There is fixed anteroseptal photopenia, suggestive of previous infarct without definite reversibility to suggest ischemia. OTHER: There are bilateral pleural effusions. There is biatrial and biventricular enlargement. IMPRESSION: MARKEDLY DECREASED EJECTION FRACTION. NO REVERSIBLE HYPOPERFUSION TO SUGGEST ISCHEMIA. ASSESSMENT: HIGH RISK. Based on imaging criteria from ACC/AHA 2002. Guideline Update for the Management of Patient's with Chronic Stable Angina, table 23. Noninvasive Risk Stratification. <Electronically signed by Willard Perales MD in OV> 01/15/20 1522 Dictated By: Willard Perales MD Dictated Date/Time: 01/15/201518 Transcribed Date/Time: 01/15/20 151 *[facility]* [place] [address] Fax #: [phone] Transthoracic Echocardiogram Patient: Apryl Smith : 1950 Study Date: 01/13/2020 Age: 70 Gender: F HR: 118 bpm Height: 65 in /165.1 cm BSA: 1.75 m^2 Weight: 149.7 lb /68 kg BMI: 25 kg/m^2 *Liberal Arts Teacher: Rachel Soto *Referring Physician: Kevin PalmerReading Physician: Rosales Potter MD Indications: Cardiomyopathy. History: Dyspnea. Atrial fibrillation. Risk factors: ETOH. Current tobacco use. Conclusions Summary: - Left ventricle: The cavity size is severely dilated. Wall thickness is normal. Systolic function is severely reduced. The estimated ejection fraction is 10-15%. - Regional wall motion abnormality: Dyskinesis of the mid anterior and basal-mid inferoseptal myocardium; akinesis of the basal and apical anterior, basal-mid anteroseptal, basal-mid inferior, and apical septal myocardium; hypokinesis of the apical inferior, mid inferolateral, mid anterolateral, apical lateral, and apical myocardium. - Right ventricle: Systolic function is mildly reduced. - Mitral valve: There is moderate regurgitation. - Pericardium, extracardiac: There is a right pleural effusion and a left pleural effusion. - Pulmonary arteries: Systolic pressure is severely increased, estimated to be 62 mm Hg. This report is only to be considered final once signed by the Provider(s) as displayed in the "<Electronically Signed by >" field (s). Absence of a signature indicates the report is in a draft status and still needs to be finalized. In the event this document was created by someone other than the signing Provider, the individual initiating the document will be listed in the "Entered by:" or "Dictated by:" kerr. EKG Data: ST, LBBB Today's ECG pending. Assessment/Plan #1 Newly diagnosed severe LV failure; LVEF 15-20%, LVIDd 6.9cm, RVSP 46mmHg. + inspiratory rales in left base with diminished R>L. Breathing continues to improve per patient since she presented to hospital. She responded well to IV diuresis yesterday with Will given 40mg IV Lasix x1, today's chemistry is pending. She was able to lay flat all night and reports she was able to sleep without waking up coughing or short of breath. She appears compensated for diagnostic LHC today. Indication for LHC reviewed with patient and family yesterday. I personally reviewed risks which include but are not limited to bleeding, infection, vessel damage, contrast induced nephropathy, possible referral for intervention / CABG, [place]/CVA/. all questions answered and she wishes to proceed. Consent to be obtained by interveonalist Dr. Barajas. Continue Coreg 6.25mg PO BID, Losartan 50/day, Aldactone 25/day. Etiology not clear could be due to CAD, viral, LBBB. She had a fixed anteroseptal defect noted on MPI . She had a negative Covid test on 01/10/20.d. Recommend daily weights, Strict intake and output, Na+ restricted diet. #2 LBBB; QRS 159. in the future after optimizing CHF medication regimen consider PROPERTY [employer] OFFICER. #3 ? CAP presenting with hypoxia that required intubation; Primary team managing. Clinically patient improving with therapy. initial Covid test negative. On Augmentin therapy. #4 Transaminitis; AST/ALT improving. ? hepatic congestion. INR 1.37. She reports daily ETOH consumption however adds it is less than a glass of wine a night. This further supports that it is likely due to hepatic congestion. Will further diurese and see if function improves. #5 Disposition pending course. Patient full code. Will plan for [facility] today. pre cath orders placed. Patient aware that if she needs intervention she would need to be transferred. She states [facility] would be acceptable and is aware that she would pay for ambulance cost due to [facility] not being the closest facility.
[2020-01-19] MEDS ORDERED: Furosemide IV* 10 MG/ML VIAL (40 MG) IV ONE (12:32)
[2020-01-19] MEDS ORDERED: Thiamine IV 100 MG, Folic Acid IV* 1 MG, Multiple Vitamin IV ADULT* 10 ML in D5NS 0.9% ... IV ONE (12:36)
[2020-01-19 12:51] LABS: % Iron Saturation 32 % (15-55); Iron 85 ug/dL (50-212); Total Iron Binding Capacity 269 mcg/dL (250-450); Transferrin 192 mg/dL (203-362)
[2020-01-19 13:14] LABS: Ferritin 113.4 ng/mL (11-307)
[2020-01-19 13:17] LABS: Folate > 20.00 ng/mL (>3.99)
--- NOTE | 2020-01-19 13:25 | PN ---
Subjective Date of Service: 01/19/20 Interval History: Patient has no new complaints. Right radial puncture site has no hematoma or eccyhmosis and has and has an excellent pulse. Right femoral puncture site, no hematoma, no bruit and no ecchymosis. 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 Thiamine HCl 100 mg/ Folic Acid 1 mg/ Multivitamins 10 ml / Dextrose/Sodium Chloride 1,011.2 mls @ 252.8 mls/hr IV ED ONCE ONE Stop: 01/19/20 16:35 Losartan Potassium (Cozaar Tab*) 50 mg PO BID [facility] Last Admin: 01/19/20 09:44 Dose: 50 mg Melatonin (Melatonin) 3 mg PO BEDTIME PRN PRN Reason: insomnia Last Admin: 01/18/20 20:34 Dose: 3 mg Potassium Chloride (Klor Con Er Tab*) 20 meq PO DAILY [facility] Last Admin: 01/19/20 09:44 Dose: 20 meq Spironolactone (Aldactone Tab*) 25 mg PO DAILY [facility] Last Admin: 01/19/20 09:44 Dose: 25 mg Thiamine HCl (Vitamin B-1 Tab*) 100 mg PO TID [facility] Torsemide (Torsemide) 20 mg PO DAILY [facility] Objective Vital Signs: Temp Pulse Resp BP Pulse Ox 98.2 F 81 18 136/70 93 01/19/20 08:00 01/19/20 08:00 01/19/20 08:00 01/19/20 08:00 01/19/20 08:00 Oxygen Devices in Use Now: None Appearance: Older woman, lying in bed, 30 degrees, comfortable appearing. Eyes: No Scleral Icterus, PERRLA Ears/Nose/Mouth/Throat: Mucous Membranes Moist Neck: NL Appearance and Movements; NL JVP, No Thyroid Enlargement, Masses Respiratory: Symmetrical Chest Expansion and Respiratory Effort - Diminished in the bases bilaterally with inspiratory rales in left base. Cardiovascular: RRR - soft murmur USB Abdominal: No Hepatosplenomegaly Extremities: No Edema, No Clubbing, Cyanosis Skin: No Rash or Ulcers Neurological: Alert and Oriented x 3, NL Muscle Strength and Tone Lines/Tubes/Other Access: Clean, Dry and Intact Peripheral IV Laboratory Results: 01/19/20 05:12 01/19/20 05:15 INR (Anticoag Therapy) 1.37 (0.82-1.09) H 01/17/20 08:22 APTT 33.3 seconds (26.0-38.0) 01/19/20 05:15 Total Bilirubin 0.70 mg/dL (0.2-1.0) 01/19/20 05:15 Direct Bilirubin 0.10 mg/dL (0.03-0.18) 01/19/20 05:15 Indirect Bilirubin 0.6 mg/dL (0.3-1.0) 01/19/20 05:15 AST 41 U/L (13-39) H 01/19/20 05:15 ALT 75 U/L (7-52) H 01/19/20 05:15 Alkaline Phosphatase 74 U/L (34-104) 01/19/20 05:15 B-Natriuretic Peptide 1077 pg/mL (<=100) H 01/16/20 15:35 Total Protein 6.0 g/dL (6.4-8.9) L 01/19/20 05:15 Albumin 3.4 g/dL (3.2-5.2) 01/19/20 05:15 Globulin 2.6 g/dL (2-4) 01/19/20 05:15 Albumin/Globulin Ratio 1.3 (1-3) 01/19/20 05:15 Triglycerides 106 mg/dL 01/19/20 05:15 Cholesterol 182 mg/dL 01/19/20 05:15 LDL Cholesterol 130 mg/dL 01/19/20 05:15 HDL Cholesterol 31.2 mg/dL 01/19/20 05:15 TSH 2.86 mcIU/mL (0.34-5.60) 01/14/20 11:03 01/10/20 01/10/20 01/10/20 11:37 18:00 23:30 Troponin I 0.09 H* 0.11 H* 0.11 H* 01/11/20 05:50 Troponin I 0.10 H* Diagnostic Imaging: Patient Name: APRYL SMITH Medical Record#: [id number] Ordering Physician: Donovan Monroy MD Acct.#: [id number] : 1950 Age: 70 Sex: F Location: [address] [place] [address]/TELEMETRY Exam Date: 01/15/202019 ADM Status: ADM IN Order Information: NUCLEAR CARDIAC STRESS TEST Accession Number: [id number] CPT: 14137 HISTORY: Cardiomyopathy LBBB COMPARISONS: None TECHNIQUE: A 1 day stress/rest myocardial perfusion study was performed, with pharmacologic stress. The stress portion was monitored by Dr. Barajas. Gated SPECT imaging was performed, with CT-based attenuation correction. DOSE: Stress: Technetium 99m tetrofosmin, 2.57 millicuries, injected at 2:28 PM on January 15, 2020 Rest: Technetium 99m tetrofosmin, 10.8 millicuries, injected at 7:15 AM on January 15, 2020 Pharmacologic agent: Lexiscan FINDINGS: CARDIAC MONITORING: No EKG changes consistent with ischemia EF: 19%. The end-diastolic volume is 258 mL TID: 1.06 MOTION: There is diffuse hypokinesia PERFUSION: There is fixed anteroseptal photopenia, suggestive of previous infarct without definite reversibility to suggest ischemia. OTHER: There are bilateral pleural effusions. There is biatrial and biventricular enlargement. IMPRESSION: MARKEDLY DECREASED EJECTION FRACTION. NO REVERSIBLE HYPOPERFUSION TO SUGGEST ISCHEMIA. ASSESSMENT: HIGH RISK. Based on imaging criteria from ACC/AHA 2002. Guideline Update for the Management of Patient's with Chronic Stable Angina, table 23. Noninvasive Risk Stratification. <Electronically signed by Willard Perales MD in OV> 01/15/20 1522 Dictated By: Willard Perales MD Dictated Date/Time: 01/15/201518 Transcribed Date/Time: 01/15/20 151 *[facility]* [place] [address] Fax #: [phone] Transthoracic Echocardiogram Patient: Apryl Smith : 1950 Study Date: 01/13/2020 Age: 70 Gender: F HR: 118 bpm Height: 65 in /165.1 cm BSA: 1.75 m^2 Weight: 149.7 lb /68 kg BMI: 25 kg/m^2 *Tree Surgeon: Rachel Soto *Referring Physician: * Kevin NavasReading Physician: * Rosales Starr MD Indications: Cardiomyopathy. History: Dyspnea. Atrial fibrillation. Risk factors: ETOH. Current tobacco use. Conclusions Summary: - Left ventricle: The cavity size is severely dilated. Wall thickness is normal. Systolic function is severely reduced. The estimated ejection fraction is 10-15%. - Regional wall motion abnormality: Dyskinesis of the mid anterior and basal-mid inferoseptal myocardium; akinesis of the basal and apical anterior, basal-mid anteroseptal, basal-mid inferior, and apical septal myocardium; hypokinesis of the apical inferior, mid inferolateral, mid anterolateral, apical lateral, and apical myocardium. - Right ventricle: Systolic function is mildly reduced. - Mitral valve: There is moderate regurgitation. - Pericardium, extracardiac: There is a right pleural effusion and a left pleural effusion. - Pulmonary arteries: Systolic pressure is severely increased, estimated to be 62 mm Hg. This report is only to be considered final once signed by the Provider(s) as displayed in the "<Electronically Signed by >" field (s). Absence of a signature indicates the report is in a draft status and still needs to be finalized. In the event this document was created by someone other than the signing Provider, the individual initiating the document will be listed in the "Entered by:" or "Dictated by:" kerr. EKG Data: ST, LBBB Today's ECG pending. Assessment/Plan #1 Newly diagnosed severe LV failure; LVEF 15-20%, LVIDd 6.9cm, RVSP 46mmHg. + inspiratory rales in left base with diminished R>L. Breathing continues to improve per patient since she presented to hospital. She responded well to IV diuresis yesterday with Will given 40mg IV Lasix x1, today's chemistry is pending. She was able to lay flat all night and reports she was able to sleep without waking up coughing or short of breath. She appears compensated for diagnostic LHC today. Indication for LHC reviewed with patient and family yesterday. I personally reviewed risks which include but are not limited to bleeding, infection, vessel damage, contrast induced nephropathy, possible referral for intervention / CABG, LA/CVA/. all questions answered and she wishes to proceed. Consent to be obtained by interveonalist Dr. Barajas. Continue Coreg 6.25mg PO BID, Losartan 50/day, Aldactone 25/day. Etiology not clear could be due to CAD, viral, LBBB. She had a fixed anteroseptal defect noted on MPI . She had a negative Covid test on 01/10/20.d. Recommend daily weights, Strict intake and output, Na+ restricted diet. #2 LBBB; QRS 159. in the future after optimizing CHF medication regimen consider SYSTEM DEVELOPMENT ENGINEER. #3 ? CAP presenting with hypoxia that required intubation; Primary team managing. Clinically patient improving with therapy. initial Covid test negative. On Augmentin therapy. #4 Transaminitis; AST/ALT improving. ? hepatic congestion. INR 1.37. She reports daily ETOH consumption however adds it is less than a glass of wine a night. This further supports that it is likely due to hepatic congestion. Will further diurese and see if function improves. #5 Disposition pending course. Patient full code. Will plan for C today. pre cath orders placed. Patient aware that if she needs intervention she would need to be transferred. She states [facility] would be acceptable and is aware that she would pay for ambulance cost due to [facility] not being the closest facility.
[2020-01-19] MEDS: Thiamine TAB* 100 MG TAB PO SCH ×2 (13:29→21:52)
--- NOTE | 2020-01-19 13:45 | CONSULT ---
Cardiology Note Patient has no new complaints.Patient has been ambulating in the room without difficulty. Right radial artery puncture site has no hematoma or ecchymosis. Right femoral artery puncture, no bruit, hematoma, or ecchymosis.
[2020-01-19] MEDS: Melatonin 3 MG TAB PO PRN (21:52)
[2020-01-20] MEDS: Aspirin EC TAB* 81 MG TAB.EC PO SCH (08:42)
[2020-01-20] MEDS: Carvedilol TAB* 3.125 MG PO SCH (08:42)
[2020-01-20] MEDS: Thiamine TAB* 100 MG TAB PO SCH (08:42)
[2020-01-20] MEDS: Spironolactone TAB* 25 MG PO SCH (08:43)
[2020-01-20] MEDS: Losartan TAB* 25 MG PO SCH (08:43)
[2020-01-20] MEDS: Potassium Chlor TAB* 20 MEQ TAB.ER PO SCH (08:44)
[2020-01-20] MEDS ORDERED: Torsemide TAB 10 MG PO SCH (09:00)
--- NOTE | 2020-01-20 09:00 | PN ---
Objective Active Medications: Aspirin (Aspirin Ec Tab*) 81 mg PO DAILY [facility] Last Admin: 01/20/20 08:42 Dose: 81 mg Carvedilol (Coreg Tab*) 3.125 mg PO BID [facility] Last Admin: 01/20/20 08:42 Dose: 3.125 mg Diphenhydramine HCl (Benadryl Po*) 25 mg PO ONCE PRN PRN Reason: dramatic critic to Yarn Examiner Skeins Losartan Potassium (Cozaar Tab*) 50 mg PO BID [facility] Last Admin: 01/20/20 08:43 Dose: 50 mg Melatonin (Melatonin) 3 mg PO BEDTIME PRN PRN Reason: insomnia Last Admin: 01/19/20 21:52 Dose: 3 mg Potassium Chloride (Klor Con Er Tab*) 20 meq PO DAILY [facility] Last Admin: 01/20/20 08:44 Dose: 20 meq Spironolactone (Aldactone Tab*) 25 mg PO DAILY [facility] Last Admin: 01/20/20 08:43 Dose: 25 mg Thiamine HCl (Vitamin B-1 Tab*) 100 mg PO TID [facility] Last Admin: 01/20/20 08:42 Dose: 100 mg Torsemide (Torsemide) 20 mg PO DAILY [facility] Last Admin: 01/20/20 08:43 Dose: 20 mg Vital Signs - 8 hr 01/20/20 01/20/20 03:30 07:00 Temperature 98.5 F 98.4 F Pulse Rate 78 76 Respiratory 18 18 Rate Blood Pressure 122/71 127/74 (mmHg) O2 Sat by Pulse 94 96 Oximetry Oxygen Devices in Use Now: None Result Diagrams: 01/19/20 05:12 01/19/20 05:15 Microbiology and Other Data: Microbiology 01/10/20 11:37 Aerobic Blood Culture - Preliminary Blood Venous No Growth Day 3 Anaerobic Blood Culture - Preliminary No Growth Day 3 01/10/20 11:37 Aerobic Blood Culture - Preliminary Blood Venous No Growth Day 3 Anaerobic Blood Culture - Preliminary No Growth Day 3 01/10/20 22:05 Gram Stain - Final Sputum Trach Sputum Culture - Final Normal Luanne 01/10/20 14:20 Urine Culture - Final Urine No Growth (<1,000 CFU/mL) 01/10/20 14:20 Legionella Urinary Antigen - Final Urine Negative Legionella Antigen Streptococcus pneumoniae Ag Screen - Final Negative S. pneumo Antigen Assess/Plan/Problems-Billing Ms Escalante is a 70 yo F with h/o osteoporosis and allergic rhinitis presented with hypoxic respiratory failure secondary to LLL pneumonia requiring intubation and was also found to have Afib and a reduced EF of 15%.She was transferred out of ICU on 01/13/20. - Patient Problems (1) Acute hypoxemic respiratory failure Current Visit: Yes Status: Acute Code(s): J96.01 - ACUTE RESPIRATORY FAILURE WITH HYPOXIA SNOMED Code(s): 229936684 Comment: Secondary to pneumonia and possibly CHF. She has been diuresed with IV lasix and her respiratory status had been stable but slightly worse today due to receiving fluid overnight. The patient is now off O2. (2) CHF (congestive heart failure) Current Visit: Yes Status: Acute Code(s): I50.9 - HEART FAILURE, UNSPECIFIED SNOMED Code(s): 31021385 Comment: Pt with severe systolic dysfunction with clean coronary arteries. She has a non-ischemic CM. Continue losartan (increased to 50mg BID), coreg 6.25mg BID, ASA. I started lasix 20mg daily but it may not be enough. Monitor urinary response this AM and if poor, will increase to 40mg daily. Possibly home today. Will need close cardiology follow up. (3) LFT elevation Current Visit: Yes Status: Acute Code(s): R79.89 - OTHER SPECIFIED ABNORMAL FINDINGS OF BLOOD CHEMISTRY SNOMED Code(s): 041600493 Comment: LFTs stable. Monitor as outpatient. (4) Pneumonia Current Visit: Yes Status: Acute Code(s): J18.9 - PNEUMONIA, UNSPECIFIED ORGANISM SNOMED Code(s): 767838893 Comment: Pt with LLL pneumonia. Augmentin is complete today.
[2020-01-20 11:23] VITALS: BP 117/66
--- NOTE | 2020-01-20 12:54 | DS ---
CC: Dr. Henri Khanna; Dr. Donovan Monroy * DISCHARGE SUMMARY: DATE OF ADMISSION: 01/10/20 DATE OF DISCHARGE: 01/20/20 PRIMARY CARE PHYSICIAN: Dr. Henri Khanna. LEAD SALES CONSULTANT: Dr. Donovan Monroy. PRINCIPAL DISCHARGE DIAGNOSES: 1. Vent-dependent respiratory failure due to acute hypoxia. 2. Community-acquired pneumonia. 3. New heart failure with reduced ejection fraction. 4. LFT elevation. 5. Atrial flutter versus sinus tachycardia. SECONDARY DISCHARGE DIAGNOSIS: Osteoporosis. MEDICATIONS AT DISCHARGE: 1. Colace 100 mg daily p.r.n. constipation. 2. Multivitamin 1 tab daily. 3. Calcium and vitamin D 500/400 b.i.d. 4. Align 4 mg daily. 5. Bentyl 20 mg b.i.d. 6. Boniva 150 mg daily. 7. Fluticasone 2 sprays both nares daily. 8. Coreg 3.125 b.i.d. 9. Losartan 50 mg b.i.d. 10. Spironolactone 25 mg daily. 11. Thiamine 100 mg t.i.d. 12. Torsemide 10 mg daily. PHYSICAL EXAM AT DISCHARGE: Temperature 98.4, heart rate 76, respiratory rate 18, pulse ox 96% on room air, blood pressure 127/74, ambulatory pulse ox was 95 % on room air. General: Alert, well-appearing woman, in no distress. HEENT: Pupils are equal, round, and reactive to light. Oral mucosa is moist. Neck: No JVP. No adenopathy. Chest: She is in a regular rate and rhythm with no murmurs. Her lungs are clear bilaterally. Abdomen: Soft, nontender, nondistended. No guarding or rebound. Extremities: The right radial access site has a small ecchymosis with no hematoma. The right groin access site also has some ecchymosis with no palpable hematoma. No bruit. Distal pulses are 2+ bilaterally with no edema. PERTINENT STUDIES ON THIS HOSPITALIZATION: A transthoracic echocardiogram on shows LV systolic function severely reduced, estimated EF was 15% to 20% . Only the base of the posterior lateral wall moves well. Septum is markedly dyskinetic consistent with left bundle-branch block. Pulmonary artery systolic pressure is moderately increased, estimated to be 46 mmHg. A cardiac catheterization performed on 01/18/20 showed right dominant coronary artery system with very minimal proximal circumflex irregularity and mildly elevated LV end-diastolic pressure. HOSPITAL COURSE BY PROBLEM: 1. Vent-dependent respiratory failure with hypoxic respiratory failure. She was intubated in the emergency department due to difficulty oxygenating her. She was admitted to the ICU and treated for community-acquired pneumonia. An echocardiogram was obtained the following day, which showed significantly reduced ejection fraction, at which point, diuresis was also added. She was able to be extubated on 01/12/20 and her oxygen was slowly titrated down. At the time of discharge, she is on 0 L of oxygen and her ambulatory pulse ox was 95% on room air. 2. Community-acquired pneumonia. She was treated with ceftriaxone and azithromycin. Her flu swabs were negative, her COVID-19 PCR was undetected, and her sputum culture grew normal demetris. 3. New heart failure with reduced ejection fraction. Cardiology was consulted and recommended an ischemic workup. After she was extubated and transferred to the floor, Interventional Cardiology evaluated her and performed a left heart catheterization on 01/18/20, which did not reveal coronary artery disease. This was deemed to be a nonischemic cardiomyopathy. She was started on medical optimization with beta-valarie, ARB, spironolactone, and diuretics. She has tolerated these very well prior to discharge and is euvolemic at the time of discharge. She will need close followup with Cardiology for further treatment and evaluation of her cardiomyopathy. The etiology remains unclear. There is daily alcohol involved, which may be contributing versus a post viral syndrome, but this will need further investigation. 4. LFT elevation. They trended down during this hospitalization and are thought to be related to passive congestion versus chronic alcohol use disorder. 5. Atrial flutter versus sinus tachycardia. There was some concern that she had 2:1 atrial flutter; however, Cardiology favored sinus tachycardia and recommended avoiding anticoagulation. DISPOSITION: Ms. Escalante is being discharged to home on 01/20/20. CONDITION AT THE TIME OF DISCHARGE: Stable. FOLLOWUP NEEDED: Ms. Escalante will need close followup with Cardiology and she has an appointment arranged in 3 days from now. Her medications have been sent to her pharmacy and she understands the importance of taking these medications. She would like to establish a new primary care physician in [place] ; however, I explained that some physicians are not seeing new patients; regardless she will follow up with Cardiology, and will call Internal Medicine to try to establish a new PCP. TIME SPENT: 40 minutes. [id number]/EVA #: [id number] REGINO
== END 2020-01-20 12:55 | disposition home or self-care (01) | DRG 208 ==
LOC: ED 10:29 → ICU 13:52 → MEDTELE 01-13 16:05
PROVIDERS: ADMIT Internal Medicine Critical Care Medicine; ATTEND Internal Medicine
PROC: 0BH17EZ Insertion of Endotracheal Airway into Trachea, Via Natural or Artificial Opening (ICD-10-PCS; principal; 2020-01-10)
PROC: 5A1945Z Respiratory Ventilation, 24-96 Consecutive Hours (ICD-10-PCS; 2020-01-10)
PROC: 4A023N7 Measurement of Cardiac Sampling and Pressure, Left Heart, Percutaneous Approach (ICD-10-PCS; 2020-01-18)
PROC: B211YZZ Fluoroscopy of Multiple Coronary Arteries using Other Contrast (ICD-10-PCS; 2020-01-18)
DX: J96.01 Acute respiratory failure with hypoxia (principal); J18.9 Pneumonia, unspecified organism; I50.21 Acute systolic (congestive) heart failure; I48.92 Unspecified atrial flutter; E74.8 Other specified disorders of carbohydrate metabolism; I42.8 Other cardiomyopathies; I44.7 Left bundle-branch block, unspecified; R00.0 Tachycardia, unspecified; R74.0 Nonspecific elevation of levels of transaminase and lactic acid dehydrogenase [LDH]; J30.9 Allergic rhinitis, unspecified; M81.0 Age-related osteoporosis without current pathological fracture; I27.20 Pulmonary hypertension, unspecified; I34.0 Nonrheumatic mitral (valve) insufficiency; R94.5 Abnormal results of liver function studies; Z79.899 Other long term (current) drug therapy; Z85.3 Personal history of malignant neoplasm of breast; I25.2 Old myocardial infarction
CPT/HCPCS: 36415; 71045; 71250; 78452; 80048; 80053; 80061; 80076; 81003; 81015; 82607; 82728; 82746; 82803; 83540; 83550; 83605; 83735; 83880; 84425; 84443; 84484; 85025; 85027; 85610; 85730; 86850; 86900; 86901; 87040; 87070; 87086; 87205; 87635; 87899; 93005; 93017; 93306; 93308; 93458; 94003; 96365; 99285; A9270-GY; A9502; C1887; J0282; J0696; J1644; J1650; J1940; J2250; J2704; J2785; J3010; J3411; J3475